=== PATIENT | female | born 1945 | race Caucasian/White ===

== ENCOUNTER 2017-09-30 17:42 | Inpatient (IN) | payer MEDICARE, OTHER ==
[2017-09-30 17:47] VITALS: BP 186/91; PULSE 108; RESP 20; O2SAT 99
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
[2017-09-30 18:31] LABS: AUTOMATED NEUTROPHIL # 3.9 TH/MM3 (1.8-7.7); BASOPHIL % 0.4 % (0.0-2.0); EOSINOPHIL # 0.1 TH/MM3 (0-0.4); EOSINOPHIL % 1.8 % (0.0-4.0); HEMATOCRIT 37.2 % (35.0-46.0); HEMOGLOBIN 13.1 GM/DL (11.6-15.3); LYMPH % 35.3 % (9.0-44.0); LYMPHOCYTE # 2.6 TH/MM3 (1.0-4.8); MEAN CELL VOLUME 86.8 FL (80.0-100.0); MEAN CORPUSCULAR HEMOGLOBIN 30.6 PG (27.0-34.0); MEAN CORPUSCULAR HGB CONC 35.2 % (32.0-36.0); MEAN PLATELET VOLUME 6.8 FL (7.0-11.0); MONO % 9.7 % (0.0-8.0); MONOCYTE # 0.7 TH/MM3 (0-0.9); NEUT % 52.8 % (16.0-70.0); PLATELET COUNT 281 TH/MM3 (150-450); RED BLOOD COUNT 4.29 MIL/MM3 (4.00-5.30); RED CELL DISTRIBUTION WIDTH 13.1 % (11.6-17.2); WHITE BLOOD COUNT 7.4 TH/MM3 (4.0-11.0)
[2017-09-30] MEDS ORDERED: LORA-474 PO (18:46)
[2017-09-30] MEDS ORDERED: MILKSUS PO (18:46)
[2017-09-30] MEDS ORDERED: BENZ1LOZ5 PO (18:46)
[2017-09-30] MEDS ORDERED: ALUMSUS3 PO (18:46)
[2017-09-30] MEDS ORDERED: HYDR-3366 PO (18:46)
[2017-09-30 18:49] LABS: BICARBONATE 29.9 MEQ/L (21.0-32.0); CALCIUM 9.2 MG/DL (8.5-10.1); CREATININE 0.57 MG/DL (0.50-1.00)
--- NOTE | 2017-09-30 19:41 | PD ---
Physical Exam Narrative General: The patient is well-developed well-nourished female in no acute distress, sitting in a wheelchair/motorized chair in her ER room. Head and Neck exam: Head is normocephalic atraumatic. Eyes: EOMI, pupils are equal round and reactive to light. Nose: Midline septum with pink mucous membranes Mouth: Dentition unremarkable. Moist mucus membranes. Posterior oropharynx is not erythematous. No tonsillar hypertrophy. Uvula midline. Airway patent. Neck: No palpable lymphadenopathy. No nuchal rigidity. No thyromegaly. Cardiovascular: Regular rate and rhythm without murmurs, gallops, or rubs. Lungs: Clear to auscultation bilaterally. No wheezes, rhonchi, or rales. Abdomen: Soft, without tenderness to palpation in all 4 quadrants of the abdomen. No guarding, rebound, or rigidity. Normal bowel sounds are audible. No tenderness on palpation of McBurney's point. Extremities: No clubbing or cyanosis, trace pedal edema bilateral lower extremities. Neurologic Exam: Grossly nonfocal. Data Data Last Documented VS Vital Signs Date Time Temp Pulse Resp B/P (MAP) Pulse Ox O2 Delivery O2 Flow Rate FiO2 09/30/17 17:47 108 20 186/91 (122) 99 Orders Orders Complete Blood Count With Diff (09/30/17 18:07) Basic Metabolic Panel (Bmp) (09/30/17 18:07) Urinalysis - C+S If Indicated (09/30/17 18:07) Electrocardiogram (09/30/17 ) Ct Brain W/O Iv Contrast(Rout) (09/30/17 ) Electrocardiogram (09/30/17 ) Psych Screen (09/30/17 20:08) Labs Laboratory Tests Test 09/30/17 18:20 White Blood Count 7.4 TH/MM3 Red Blood Count 4.29 MIL/MM3 Hemoglobin 13.1 GM/DL Hematocrit 37.2 % Mean Corpuscular Volume 86.8 FL Mean Corpuscular Hemoglobin 30.6 PG Mean Corpuscular Hemoglobin Concent 35.2 % Red Cell Distribution Width 13.1 % Platelet Count 281 TH/MM3 Mean Platelet Volume 6.8 FL Neutrophils (%) (Auto) 52.8 % Lymphocytes (%) (Auto) 35.3 % Monocytes (%) (Auto) 9.7 % Eosinophils (%) (Auto) 1.8 % Basophils (%) (Auto) 0.4 % Neutrophils # (Auto) 3.9 TH/MM3 Lymphocytes # (Auto) 2.6 TH/MM3 Monocytes # (Auto) 0.7 TH/MM3 Eosinophils # (Auto) 0.1 TH/MM3 Basophils # (Auto) 0.0 TH/MM3 CBC Comment DIFF FINAL Differential Comment Blood Urea Nitrogen 13 MG/DL Creatinine 0.57 MG/DL Random Glucose 143 MG/DL Calcium Level 9.2 MG/DL Sodium Level 138 MEQ/L Potassium Level 4.2 MEQ/L Chloride Level 104 MEQ/L Carbon Dioxide Level 29.9 MEQ/L Anion Gap 4 MEQ/L Estimat Glomerular Filtration Rate 105 ML/MIN MDM Medical Record Reviewed: Yes Supervised Visit with ETHAN: No Narrative Course During the course of the patients emergency department visit, the patients history, examination, and differential diagnosis were reviewed with the patient. The patient was placed on a hydraulic auto jack mechanic with oximetry and frequent blood pressure monitoring. The patient had IV access obtained and blood work sent for analysis. The patient's case was checked out to me by Dr. Boss. Please see her complete history and physical. The patient's case was checked out to me at the conclusion of her shift. The patient is currently experiencing altered mentation with paranoid delusions and was placed under a Greenwood act at her local long-term. The patients laboratory studies were reviewed and remarkable for a CBC that is remarkable for a white count of 7.4, hemoglobin 13.1, platelets 281 with 9.7 monocytes, BE sick and blood profiles remarkable for an anion gap of 4, glucose 143. A CT scan of the brain was ordered, however the patient refuses to get out of her wheelchair to have the examination done. She denies any head injury. The patient is awake and alert and oriented to person, place, time, and situation, and seems to understand the reasoning behind wanted to get the CAT scan, however she continues to refuse. The CT scan was canceled at this point. The patient has been medically cleared for evaluation by the psychiatric screener under a Greenwood act for paranoid delusions, acute psychosis. Diagnosis Primary Impression: Paranoid delusion Allegra Campbell MD Sep 30, 2017 19:41
[2017-10-01] MEDS ORDERED: ACETAMINOPHEN 325 MG TAB PO PRN
[2017-10-01] MEDS ORDERED: MAGNESIUM HYDROXIDE SUSP 30 ML CUP PO PRN
[2017-10-01] MEDS ORDERED: NICOTINE 21 MG/24 HR PATCH T-DERMAL PRN
[2017-10-01] MEDS ORDERED: ALUMINUM/MAGNESIUM/SIMETH 30 ML CUP PO PRN
[2017-10-01] MEDS ORDERED: ACETAMINOPHEN/HYDROcodone 325 MG/10 MG TAB PO ONE
[2017-10-01 01:30] VITALS: BP 184/82; PULSE 87; RESP 16; O2SAT 99
[2017-10-01 05:38] VITALS: BP 155/70; PULSE 80; RESP 16; O2SAT 99
[2017-10-01 08:19] LABS: ALBUMIN 3.1 GM/DL (3.4-5.0); AST (GOT) 11 U/L (15-37); BICARBONATE 28.7 MEQ/L (21.0-32.0); BLOOD UREA NITROGEN 10 MG/DL (7-18); CALCIUM 8.8 MG/DL (8.5-10.1); CHLORIDE 105 MEQ/L (98-107); CHOLESTEROL 141 MG/DL (120-200); CREATININE 0.45 MG/DL (0.50-1.00); GLOMERULAR FILTRATION RATE 138 ML/MIN (>89); GLUCOSE,RANDOM 92 MG/DL (74-106); SODIUM (NA) 141 MEQ/L (136-145)
[2017-10-01 08:21] LABS: ALT (GPT) 14 U/L (10-53); TRIGLYCERIDES 48 MG/DL (42-150)
[2017-10-01 08:30] LABS: ALKALINE PHOSPHATASE 79 U/L (45-117); LDL CHOLESTEROL 57 MG/DL (0-99); TOTAL BILIRUBIN ADULT 0.3 MG/DL (0.2-1.0); TOTAL PROTEIN 6.4 GM/DL (6.4-8.2)
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
[2017-10-01] MEDS ORDERED: LORazepam 1 MG TAB PO PRN (10:15)
[2017-10-01] MEDS ORDERED: ACETAMINOPHEN/HYDROcodone 325 MG/10 MG TAB PO SCH (10:15)
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
[2017-10-01] MEDS: ACETAMINOPHEN/HYDROcodone 325 MG/10 MG TAB PO PRN ×2 (14:30→20:51)
[2017-10-01 16:14] LABS: HEMOGLOBIN A1C 5.7 % (4.3-6.0)
[2017-10-01] MEDS ORDERED: ACETAMINOPHEN/HYDROcodone 325 MG/10 MG TAB PO PRN (16:15)
--- NOTE | 2017-10-01 17:37 | PD.WCN.NOT ---
Wound Consult Description: Consult for left lower extremity per Dr Velásquez Communicated with: Patient RN Recommendation: Vocabril groundskeeper when patient allows us to remove the current dressing in place. Additional Information: Patient seen outside room 400 for attempt to visualize wound on left lower extremity. Patient refuses dressing removal stating that it was changed last night and is supposed to stay in place for 5 days. Patient states that Xeroform was placed over the small healing wound and a foam with AG was placed over the Xeroform and one dante was used over the dressing to wrap. Gaby Flores [facility]ITAL[facility] Oct 01, 2017 17:37
[2017-10-01 18:00] VITALS: BP 127/70; PULSE 81; RESP 16; TEMP 97.4; O2SAT 99
--- NOTE | 2017-10-01 21:21 | RADRPT ---
EXAM DATE/TIME: 10/01/2017 20:31 [place] COMPARISON: No previous studies available for comparison. INDICATIONS : Altered mental status; weakness,neuropathy,weakness. RADIATION DOSE: 46.78 CTDIvol (mGy) MEDICAL HISTORY : Hypertension. SURGICAL HISTORY : None. ENCOUNTER: Initial ACUITY: 1 day PAIN SCALE: 0/10 LOCATION: cranial TECHNIQUE: Multiple contiguous axial images were obtained of the head. Using automated exposure control and adj ustment of the mA and/or kV according to patient size, radiation dose was kept as low as reasonably a chievable to obtain optimal diagnostic quality images. DICOM format image data is available electro nically for review and comparison. FINDINGS: CEREBRUM: The ventricles are normal for age. No evidence of midline shift, mass lesion, hemorrhage or acute in farction. No extra-axial fluid collections are seen. POSTERIOR FOSSA: The cerebellum and brainstem are intact. The 4th ventricle is midline. The cerebellopontine angle i s unremarkable. EXTRACRANIAL: The visualized portion of the orbits is intact. SKULL: The calvaria is intact. No evidence of skull fracture. CONCLUSION: Normal examination for a patient of this age. Florentino Harris MD on October 01, 2017 at 21:19 Board Certified Radiologist. This report was verified electronically.
[2017-10-02] MEDS: ACETAMINOPHEN/HYDROcodone 325 MG/10 MG TAB PO PRN ×4 (03:06→21:22)
[2017-10-02 05:55] VITALS: BP 123/56; PULSE 79; RESP 17; TEMP 97.6; O2SAT 99
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
[2017-10-02 19:12] VITALS: BP 136/64; PULSE 83; RESP 20; TEMP 97.2; O2SAT 97
[2017-10-02 20:47] VITALS: O2SAT 97
[2017-10-02] MEDS: HEPARIN SODIUM - SQ 10,000 UNITS/ML VIAL SQ SCH (21:00)
[2017-10-03] MEDS: ACETAMINOPHEN/HYDROcodone 325 MG/10 MG TAB PO PRN ×4 (03:40→22:12)
[2017-10-03 06:14] VITALS: BP 134/63; PULSE 74; RESP 16; TEMP 95.2; O2SAT 97
--- NOTE | 2017-10-03 08:31 | HHI.PR ---
Subjective Remarks Follow up on psychosis, reactive airway disease, chronic pain and neuropathy. Patient seen and examined with nurse at bedside. This morning she and reports that her oxygen has been discontinued. Patient states that this morning after being off of oxygen she is feeling weak, she reports shortness of breath, continues to be unwilling to try breathing treatments, room air oxygen saturation 97%. Patient is upset because she believes that oxygen saturation is not an accurate measure of her oxygen levels. She is also requesting special creams and ointments which she states she uses at [facility] she is requesting triple antibiotic ointment which she would like to put on her feet as she states this helps with redness and prevent open wounds. She states that she is covered in blankets because if her skin is exposed to air it will open up and bleed. She is requesting triple antibiotic ointment to put in perineal area due to rash. She does not allow me to examine her feet or skin. Later with psychiatrist and nurse at bedside she does allow us to remove her shoes. Overgrown toenails with skin moisture present. I am not able to see any redness, or sores. Objective Vitals Vital Signs Date Time Temp Pulse Resp B/P (MAP) Pulse Ox O2 Delivery O2 Flow Rate FiO2 10/03/17 06:14 95.2 74 16 134/63 (86) 97 10/03/17 06:00 97 10/03/17 01:00 97 10/02/17 23:21 97 Room Air 10/02/17 20:55 97 Room Air 10/02/17 20:47 97 10/02/17 19:12 97.2 83 20 136/64 (88) 97 10/02/17 17:31 98 Room Air 10/02/17 16:42 97 Room Air 10/02/17 16:17 98 Room Air I/O 10/02/17 10/02/17 10/02/17 10/03/17 10/03/17 10/03/17 07:00 15:00 23:00 07:00 15:00 23:00 Intake Total 480 ml 360 ml 1080 ml 240 ml Balance 480 ml 360 ml 1080 ml 240 ml Intake Oral 480 ml 360 ml 1080 ml 240 ml # Voids 1 5 Result Diagram: 09/30/17 1820 10/01/17 0655 Imaging Last Impressions Head CT 10/01/17 0000 Signed Impressions: Service Date/Time: Sunday, October 01, 2017 20:31 - CONCLUSION: Normal examination for a patient of this age. Florentino Harris MD Objective Remarks GENERAL: Well-nourished, well-developed elderly female patient in NAD. SKIN: Warm and moist. Right leg dressing dry and intact. Skin assessment limited. HEAD: Normocephalic. Atraumatic. EYES: Pupils equal and round. No scleral icterus. No injection or drainage. ENT: No nasal bleeding or discharge. Mucous membranes pink and moist. NECK: Supple. Trachea midline. CARDIOVASCULAR: Regular rate and rhythm. S1, S2 noted. No murmur appreciated. RESPIRATORY: No accessory muscle use. Clear to auscultation. Breath sounds equal bilaterally. GASTROINTESTINAL: Abdomen soft, non-tender, nondistended. Normoactive bowel sounds x4. MUSCULOSKELETAL: No obvious deformities. Bilateral feet with overgrown toenails dark and yellow discoloration. NEUROLOGICAL: Awake and alert. No obvious cranial nerve deficits. Motor grossly within normal limits. Normal speech. 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 Patient who resides in prison was [place] acted secondary to questionable altered mental status, and delusions. Unspecified psychosis - Treatment per psychiatry. - Head CT scan completed on 10/01 reviewed, normal exam for patient's age. - TSH within normal range Reactive airway disease - Patient offered nebulizer treatments, continues to refuse. - Nasal cannula discontinued, oxygen saturation stable. -Request for oxygen likely related to psychiatric issues. Neuropathy/chronic pain - Continue [place] 10 mg every 6 hours as needed for pain -Pending neurology evaluation Right leg wound - Wound care consulted and following. Perineal rash -Patient did not allow for exam -Will allow female nurse to view rash later tonight during bed bath. Overgrown toenails - Podiatry consulted, appreciate recommendations -Nurse to check on consult DVT prophylaxis - start Subcutaneous heparin (patient refusing) Discussed with nurse and Dr. Fonseca. Eugene Camejo Oct 03, 2017 08:31
--- NOTE | 2017-10-03 08:35 | HHI.PYPN ---
Subjective Remarks Patient seen for follow-up, chart reviewed. Discussion she staff reported patient continues to refuse cooperation with physical therapy, wound care and noted to have decreased nutritional intake and continued to be perseverative on having her oxygen despite having good saturations on room air. Patient was found lying in hospital bed but a be continued delusions of the air and environmental factors affecting her physical state stating that her skin would be burning and bleeding expose to the air. She continues to endorse that the chemicals in air or affecting her skin causing her to have the pain. Patient was able to expose her feet to the hospitalist and believes that the overgrowth of her nailbed is a growth apart from her nails. Despite psychoeducation on her medical conditions and necessity for treatment patient continues with these persistent delusions. Review of Systems Except as stated in HPI: all other systems reviewed are Neg Mental Status Examination Appearance: Disheveled, Other (covered in blankets) Consciousness: Alert Orientation: x4 Motor Activity: Abnormal gait Speech: Unremarkable Language: Adequate Fund of Knowledge: Inadequate Attention and Concentration: Adequate Memory: Unremarkable Mood: Anxious, Irritable Affect: Irritable, Anxious Thought Process & Associations: Loose associations, Tangential Thought Content: Bizarre thinking, Preoccupations, Delusional Hallucination Type: None Delusion Type: Paranoid, Somatic Suicidal Ideation: No Suicidal Plan: No Suicidal Intention: No Homicidal Ideation: No Homicidal Plan: No Homicidal Intention: No Insight: Poor Judgment: Poor Results Vitals/IOs Vital Signs Date Time Temp Pulse Resp B/P (MAP) Pulse Ox O2 Delivery O2 Flow Rate FiO2 10/03/17 06:14 95.2 74 16 134/63 (86) 97 10/02/17 23:21 Room Air Intake and Output 10/03/17 10/03/17 10/04/17 08:00 16:00 00:00 Intake Total 240 ml Balance 240 ml Assessment & Plan Problem List: (1) Unspecified psychosis ICD Codes: F29 - Unspecified psychosis not due to a substance or known physiological condition Assessment & Plan The patient at this time continues with his persistent delusions of the ER affecting her well-being and causing burning or bleeding from her skin due to "chemicals in the air". Patient continues refusing psychotropic medications. We'll continue to find healthcare surrogate for patient as patient continues to have these persistent delusions adversely affecting her care and she is refusing cooperation at this time. Podiatry consult pending. Neurology consult pending. Continue recommendations as per primary medical team. Discharge planning in progress Justification for Cont. Inpt. At risk for decompensation at lower level of care Discharge Planning To be determined Rome Fonseca MD Oct 03, 2017 08:35
[2017-10-03] MEDS: HEPARIN SODIUM - SQ 10,000 UNITS/ML VIAL SQ SCH ×2 (09:48→21:00)
[2017-10-03 18:00] VITALS: BP 132/63; PULSE 81; RESP 16; TEMP 94.4; O2SAT 98
[2017-10-04] MEDS: ACETAMINOPHEN/HYDROcodone 325 MG/10 MG TAB PO PRN ×5 (03:56→23:01)
[2017-10-04 06:01] VITALS: BP 114/59; PULSE 72; RESP 17; TEMP 97.5; O2SAT 97
[2017-10-04] MEDS: HEPARIN SODIUM - SQ 10,000 UNITS/ML VIAL SQ SCH ×2 (07:26→20:49)
--- NOTE | 2017-10-04 08:37 | HHI.PR ---
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 she is been greenwood act due to Psychosis followed by Psychiatry, Objective Vital Signs Date Time Temp Pulse Resp B/P (MAP) Pulse Ox O2 Delivery O2 Flow Rate FiO2 10/04/17 06:01 97.5 72 17 114/59 (77) 97 10/03/17 23:08 18 10/03/17 20:00 96 Room Air 21 10/03/17 18:00 94.4 81 16 132/63 (86) 98 10/03/17 08:30 98 Room Air I/O 10/03/17 10/03/17 10/03/17 10/04/17 10/04/17 10/04/17 07:00 15:00 23:00 07:00 15:00 23:00 Intake Total 240 ml 960 ml 840 ml 720 ml Balance 240 ml 960 ml 840 ml 720 ml Intake Oral 240 ml 960 ml 840 ml 720 ml # Voids 5 2 2 Result Diagram: 09/30/17 1820 10/01/17 0655 Imaging Last Impressions Head CT 10/01/17 0000 Signed Impressions: Service Date/Time: Sunday, October 01, 2017 20:31 - CONCLUSION: Normal examination for a patient of this age. Florentino Harris MD Procedures None Other Results Laboratory Tests Test 09/30/17 18:20 10/01/17 06:55 10/01/17 11:40 White Blood Count 7.4 TH/MM3 Red Blood Count 4.29 MIL/MM3 Hemoglobin 13.1 GM/DL Hematocrit 37.2 % Mean Corpuscular Volume 86.8 FL Mean Corpuscular Hemoglobin 30.6 PG Mean Corpuscular Hemoglobin Concent 35.2 % Red Cell Distribution Width 13.1 % Platelet Count 281 TH/MM3 Mean Platelet Volume 6.8 FL Neutrophils (%) (Auto) 52.8 % Lymphocytes (%) (Auto) 35.3 % Monocytes (%) (Auto) 9.7 % Eosinophils (%) (Auto) 1.8 % Basophils (%) (Auto) 0.4 % Neutrophils # (Auto) 3.9 TH/MM3 Lymphocytes # (Auto) 2.6 TH/MM3 Monocytes # (Auto) 0.7 TH/MM3 Eosinophils # (Auto) 0.1 TH/MM3 Basophils # (Auto) 0.0 TH/MM3 CBC Comment DIFF FINAL Differential Comment Blood Urea Nitrogen 10 MG/DL Creatinine 0.45 MG/DL Random Glucose 92 MG/DL Total Protein 6.4 GM/DL Albumin 3.1 GM/DL Calcium Level 8.8 MG/DL Alkaline Phosphatase 79 U/L Aspartate Amino Transf (AST/SGOT) 11 U/L Alanine Aminotransferase (ALT/SGPT) 14 U/L Total Bilirubin 0.3 MG/DL Sodium Level 141 MEQ/L Potassium Level 3.9 MEQ/L Chloride Level 105 MEQ/L Carbon Dioxide Level 28.7 MEQ/L Anion Gap 7 MEQ/L Estimat Glomerular Filtration Rate 138 ML/MIN Hemoglobin A1c 5.7 % Triglycerides Level 48 MG/DL Cholesterol Level 141 MG/DL LDL Cholesterol 57 MG/DL HDL Cholesterol 74.0 MG/DL Cholesterol/HDL Ratio 1.90 RATIO Thyroid Stimulating Hormone 3rd Gen 0.772 uIU/ML Free Thyroxine 1.28 NG/DL Total Triiodothyronine 89 NG/DL Objective Remarks GENERAL: Obese patient in no acute distress. HEAD: Normocephalic. Atraumatic. EYES: Pupils equal and round. NECK: Supple. No JVD CARDIOVASCULAR: Regular rate and rhythm. S1, S2 noted. No murmur appreciated. RESPIRATORY: No accessory muscle use. 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 Patient who resides in [facility] was [place] acted secondary to questionable altered mental status, and delusions. Unspecified psychosis - Treatment per psychiatry. - Head CT scan completed on 10/01 reviewed, normal exam for patient's age. - TSH within normal range Reactive airway disease - Patient offered nebulizer treatments, continues to refuse. - Nasal cannula discontinued, oxygen saturation stable. -Request for oxygen likely related to psychiatric issues. Neuropathy/chronic pain - Continue [place] 10 mg every 6 hours as needed for pain -Pending neurology evaluation Right leg wound - Wound care consulted and following. Perineal rash -Patient did not allow for exam -Will allow female nurse to view rash later tonight during bed bath. Overgrown toenails - Podiatry consulted, appreciate recommendations -Nurse to check on consult DVT prophylaxis - start Subcutaneous heparin (patient refusing) Discussed with Nurse Miss Crawford Patient did not permit major evaluation or physical Exam Discharge Planning as per attending physician Brodie Spencer MD Oct 04, 2017 08:37
--- NOTE | 2017-10-04 09:09 | HHI.PYPN ---
Subjective Remarks Patient is here for follow, chart reviewed. Discussion nursing staff reported the patient has had limited cooperation with physical therapy, refusing to ambulate to shower or use toilet and only wanted to be transferred to wheelchair. Patient was found lying in hospital bed, cooperative. Patient continued to be very perseverative and delusional about having her skin " exposed to the air" due to the chemicals in the air. She continues to report having burning or painful sensations on her skin when exposed to the air. Patient also refuses to cooperate with physical therapy as she does not want to remove the blankets due to the same. Patient was encouraged to work with physical therapy as well as to allow assistance to go to the bathroom shower and maintain adequate personal hygiene. Patient noted to become irritable throughout interview and refused to continue. Review of Systems Except as stated in HPI: all other systems reviewed are Neg Mental Status Examination Appearance: Disheveled, Other (covered in blankets) Consciousness: Alert Orientation: x4 Motor Activity: Abnormal gait Speech: Unremarkable Language: Adequate Fund of Knowledge: Inadequate Attention and Concentration: Adequate Memory: Unremarkable Mood: Anxious, Irritable Affect: Irritable, Anxious Thought Process & Associations: Loose associations, Tangential Thought Content: Bizarre thinking, Preoccupations, Delusional Hallucination Type: None Delusion Type: Paranoid, Somatic Suicidal Ideation: No Suicidal Plan: No Suicidal Intention: No Homicidal Ideation: No Homicidal Plan: No Homicidal Intention: No Insight: Poor Judgment: Poor Results Vitals/IOs Vital Signs Date Time Temp Pulse Resp B/P (MAP) Pulse Ox O2 Delivery O2 Flow Rate FiO2 10/04/17 06:01 97.5 72 17 114/59 (77) 97 10/03/17 20:00 Room Air 21 Intake and Output 10/04/17 10/04/17 10/05/17 08:00 16:00 00:00 Intake Total 720 ml Balance 720 ml Assessment & Plan Problem List: (1) Unspecified psychosis ICD Codes: F29 - Unspecified psychosis not due to a substance or known physiological condition Assessment & Plan Patient at this time continues to be very delusional and somatic refusing interventions and care from staff. Due to these delusions patient has been resistant to work with physical therapy, allowing assistance to shower which she has not done since admission. Patient no longer on oxygen and saturating well on room air. Patient continues to refuse psychotropic medications to address her delusions. It is possible that these delusions may be fixed but are clear if they will be responsive to antipsychotic treatment as patient is refusing at this time. Podiatry consult pending, neurology consult pending. Continue recommendations for per medical team. Continue to encourage patient to participate in care. Discharge planning in progress Justification for Cont. Inpt. At risk for further decompensation if at lower level of care Discharge Planning To be determined Rome Fonseca MD Oct 04, 2017 09:09
[2017-10-04] MEDS ORDERED: ZINC OXIDE 20% OINT 30 GM TUBE TOPICAL PRN (15:15)
[2017-10-04 18:00] VITALS: BP 132/63; PULSE 75; RESP 17; O2SAT 97
[2017-10-05] MEDS: ACETAMINOPHEN/HYDROcodone 325 MG/10 MG TAB PO PRN ×4 (03:59→22:43)
[2017-10-05 06:00] VITALS: BP 120/60; PULSE 68; RESP 20; TEMP 98.1; O2SAT 96
[2017-10-05] MEDS: HEPARIN SODIUM - SQ 10,000 UNITS/ML VIAL SQ SCH ×3 (07:40→21:20)
--- NOTE | 2017-10-05 08:36 | HHI.PR ---
Subjective Remarks Patient seen and examined this morning. Afebrile vital signs stable. She is completely covered in multiple layers of clothes and blankets. Would not allow me to examine her body. She is demanding that we provide her with oxygen even though she is satting well and having no issues at this time. She is currently Greenwood acted and her psychosis is being managed by psychiatry. She is reporting multiple complaints of rashes, ingrown toe nails, and hallucinations. Of note she will not allow me to examine her. At this time she is currently medically stable. Objective Vitals Vital Signs Date Time Temp Pulse Resp B/P (MAP) Pulse Ox O2 Delivery O2 Flow Rate FiO2 10/05/17 06:00 98.1 68 20 120/60 (80) 96 10/04/17 18:00 75 17 132/63 (86) 97 I/O 10/04/17 10/04/17 10/04/17 10/05/17 10/05/17 10/05/17 07:00 15:00 23:00 07:00 15:00 23:00 Intake Total 720 ml 960 ml 840 ml 240 ml Balance 720 ml 960 ml 840 ml 240 ml Intake Oral 720 ml 960 ml 840 ml 240 ml # Voids 1 1 Result Diagram: 10/01/17 0655 Imaging Last Impressions Head CT 10/01/17 0000 Signed Impressions: Service Date/Time: Sunday, October 01, 2017 20:31 - CONCLUSION: Normal examination for a patient of this age. Florentino Harris MD Objective Remarks Of note patient would not allow me to remove the layers covering her to examine her skin and body. GENERAL: Well-nourished, well-developed patient. No acute distress. SKIN: Warm and dry. No rash. EYES: No scleral icterus. No injection or drainage. PERRLA. EOMI. HENT: Normocephalic. Atraumatic. MMM. NECK: No visible JVD or lymphadenopathy. CARDIOVASCULAR: Regular rate and rhythm RESPIRATORY: Clear to auscultation bilaterally GASTROINTESTINAL: Abdomen nondistended. MUSCULOSKELETAL: Strength grossly WNL. BACK: Without obvious deformity. NEURO/PSYCH: Afocal. Awake, alert, and oriented x3. Medications and IVs Current Medications Medications (Trade) Dose Ordered Sig/Cesia Route Start Time Stop Time Status Last Admin (Tylenol) 650 mg Q4H PRN PO 10/01/17 00:00 (Milk Of Magnesia Liq) 30 ml DAILY PRN PO 10/01/17 00:00 (Mag-Al Plus Susp Liq) 30 ml Q6H PRN PO 10/01/17 00:00 (Habitrol 21 Mg Patch.24 Hr) 1 patch DAILY PRN T-DERMAL 10/01/17 00:00 (Ativan) 1 mg Q6H PRN PO 10/01/17 10:15 ([place] 10-325 Mg) 1 tab Q6H PRN PO 10/01/17 14:10 10/05/17 03:59 (Heparin Inj) 5,000 units Q12HR SQ 10/02/17 21:00 (Zinc Oxide 20% Oint) 1 applic UNSCH PRN TOPICAL 10/04/17 15:15 A/P Problem List: (1) Paranoid delusion ICD Code: F22 - Delusional disorders Status: Acute Assessment and Plan 71-year-old female with past medical history significant for 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 Patient who resides in residential was [place] acted secondary to questionable altered mental status, and delusions. Unspecified psychosis - Treatment per psychiatry. - Head CT scan completed on 10/01 reviewed, normal exam for patient's age. - TSH within normal range Reactive airway disease - Patient offered nebulizer treatments, continues to refuse. - Nasal cannula discontinued, oxygen saturation stable. -Request for oxygen likely related to psychiatric issues. Neuropathy/chronic pain - Continue [place] 10 mg every 6 hours as needed for pain -Pending neurology evaluation Right leg wound - Wound care consulted and following. Perineal rash -Patient did not allow for exam -Will allow female nurse to view rash later tonight during bed bath. Overgrown toenails - Podiatry consulted, appreciate recommendations -Nurse to check on consult DVT prophylaxis - start Subcutaneous heparin (patient refusing) Discharge Planning Currently [place] acted discharge planning per psychiatry Jaren Cerrato MD, R3 Oct 05, 2017 08:36
--- NOTE | 2017-10-05 14:11 | HHI.PYPN ---
Subjective Remarks Patient is here for follow, chart reviewed. Discussion nursing staff reported the patient this morning was perseverative on having oxygen replaced despite the patient having adequate saturation on room air. Patient was found sitting in hospital chair in the hallway noted to be covered up from the neck down to her feet stating that she had difficulty breathing last night because the heater was on on the unit and very difficult for her to breathe. Patient states the physical therapy did come by but she had refused to try to work with them stating that her skin and cannot be exposed to the air because her skin will "break out in bleed". The patient was reminded that this patient has not had any skin lesions or bleeding since her admission patient states that if she is exposed to the long enough that will happen. Patient continues to have perseveration of these somatic delusions and refusing allowing staff to assist her into the shower or into the bathroom to have bowel movement in the toilet. Patient continues to demand having bowel movements with the bedpan and that to be moved from her bed. Patient continues to state that there have been years of documentation and lawsuit against her previous doctors about her conditions improvise name of her courtesy booth cashier Ramon Penaloza ([phone]) who allegedly has all these documents. When asked if treatment team can contact her brother in [place] patient refused. Review of documentation from psychiatric evaluation done on 09/30/17 was requested due to increasing psychosis, delusions and paranoia requested by nursing staff as [facility] was deemed not [facility] and refuses treatment. After evaluation patient was determined to have delusional disorder and OCD which patient had refused treatment and was subsequently put on a Greenwood act and brought to the hospital. Review of Systems Except as stated in HPI: all other systems reviewed are Neg Mental Status Examination Appearance: Disheveled, Other (covered in blankets) Consciousness: Alert Orientation: x4 Motor Activity: Abnormal gait Speech: Unremarkable Language: Adequate Fund of Knowledge: Inadequate Attention and Concentration: Adequate Memory: Unremarkable Mood: Anxious, Irritable Affect: Irritable, Anxious Thought Process & Associations: Loose associations, Tangential Thought Content: Bizarre thinking, Preoccupations, Delusional Hallucination Type: None Delusion Type: Paranoid, Somatic Suicidal Ideation: No Suicidal Plan: No Suicidal Intention: No Homicidal Ideation: No Homicidal Plan: No Homicidal Intention: No Insight: Poor Judgment: Poor Results Vitals/IOs Vital Signs Date Time Temp Pulse Resp B/P (MAP) Pulse Ox O2 Delivery O2 Flow Rate FiO2 10/05/17 12:40 96 Room Air 10/05/17 06:00 98.1 68 20 120/60 (80) 10/03/17 20:00 21 Intake and Output 10/05/17 10/05/17 10/06/17 08:00 16:00 00:00 Intake Total 480 ml 960 ml Balance 480 ml 960 ml Assessment & Plan Problem List: (1) Unspecified psychosis ICD Codes: F29 - Unspecified psychosis not due to a substance or known physiological condition Assessment & Plan Patient this time continues with persistent somatic delusions as well as paranoia and continues to refuse cooperation with treatment and evaluations. Patient continues to have poor care of hygiene secondary to her delusions. There are no family or friends to serve as health care surrogates regarding applicants and patient refusing to allow treatment team to contact the patient' s brother in [place] for more collateral information. Patient continues to report having neuropathy which neurology consult still pending as well as podiatry consult pending. Continue to encourage patient to participate in care and to allow assistance in personal hygiene. Discharge planning in progress Justification for Cont. Inpt. At risk for further decompensation at lower level of care Rome Fonseca MD Oct 05, 2017 14:11
[2017-10-05 18:36] VITALS: BP 141/70; PULSE 78; RESP 16; O2SAT 98
[2017-10-06] MEDS: ACETAMINOPHEN/HYDROcodone 325 MG/10 MG TAB PO PRN ×4 (05:07→23:09)
[2017-10-06 05:34] VITALS: BP 120/57; PULSE 77; RESP 16; O2SAT 97
[2017-10-06] MEDS: HEPARIN SODIUM - SQ 10,000 UNITS/ML VIAL SQ SCH ×2 (09:00→21:00)
--- NOTE | 2017-10-06 09:50 | HHI.PR ---
Subjective Remarks No distress. Patient is out of bed in a wheelchair, having a conversation on the telephone when seen. No need for oxygen. Objective Vital Signs Date Time Temp Pulse Resp B/P (MAP) Pulse Ox O2 Delivery O2 Flow Rate FiO2 10/06/17 05:34 77 16 120/57 (78) 97 10/05/17 20:00 98 Room Air 10/05/17 18:36 78 16 141/70 (93) 98 10/05/17 12:40 96 Room Air I/O 10/05/17 10/05/17 10/05/17 10/06/17 10/06/17 10/06/17 07:00 15:00 23:00 07:00 15:00 23:00 Intake Total 240 ml 1200 ml 480 ml 120 ml 360 ml Balance 240 ml 1200 ml 480 ml 120 ml 360 ml Intake Oral 240 ml 1200 ml 480 ml 120 ml 360 ml # Voids 1 2 2 Procedures None Objective Remarks GENERAL: NAD, sitting upright, mobile with wheelchair. SKIN: Warm and dry. HEAD: Normocephalic. EYES: No scleral icterus. No injection or drainage. NECK: trachea midline. No JVD or lymphadenopathy. CARDIOVASCULAR: Regular rate and rhythm RESPIRATORY: No respiratory distress. No wheezing. No accessory muscle use. GASTROINTESTINAL: nondistended. MUSCULOSKELETAL: No cyanosis, or edema. BACK: Nontender without obvious deformity. No CVA tenderness. A/P Problem List: (1) Paranoid delusion ICD Code: F22 - Delusional disorders Status: Acute (2) Unspecified psychosis ICD Code: F29 - Unspecified psychosis not due to a substance or known physiological condition Assessment and Plan 71-year-old female admitted with paranoid delusions. Complaint of respiratory distress, without correlation of hypoxia or signs of respiratory distress on physical exam. Unspecified psychosis Continue Treatment per psychiatry. Reactive airway disease Resolved Continue nebulized treatments if needed No need for oxygen Chronic Neuropathic Pain Continue [place] 10 mg every 6 hours as needed for pain Right leg wound No worsening Wound Care Following Perineal rash Patient declines exams Overgrown toenails Podiatry following Patient may decline exam DVT prophylaxis Patient refuses SQ heparin Discharge Planning discharge planning per psychiatry Oliver Small MD Oct 06, 2017 09:50
--- NOTE | 2017-10-06 10:36 | PD.TTN ---
Patient Problems 1. Discharge planning 2. Medication compliance 3. Knowledge deficit 4. Lack of coping skills Progress Toward Goals Provider Present: Dr. Gopi Fonseca Provider Input: 10/06/2017: per Dr. Fonseca, patient is refusing medication and service; will need to take to BA court Nurse(s) Present: RN Nurse(s) Input: 10/06/2017: patient requires redirection and coaching with meals, medication and treatment Psychiatric Counselors Present: PEGGY Edward Psych Therapist Input: 10/06/2017; counselor will contact [facility] to gather additional information regarding BA from their facility. Group Spec/RT/OT/UMANA Present: Marcella Mane, GPS, Chris Peguero, OT Group Spec/RT/OT/UMANA Input: 10/06/2017 patient is unable to participate with group activities Maye Alexis [facility] Oct 06, 2017 10:36
--- NOTE | 2017-10-06 10:46 | HHI.PYPN ---
Subjective Remarks Patient seen for follow, chart reviewed. Discussion nursing staff reported the patient continues to refuse all interventions for care or allowing evaluation to be done adequately by staff. Patient was found in a wheelchair today and noted to be somewhat irritable when asked to allow the wound whom she has dressing on to be examined today stating that she needed to be in the hallway to be able to breathe. Patient continues with very bizarre somatic delusions and what attempts to explain medical necessity for interventions and evaluations patient continues to resist allowing evaluation or interventions. Legal process was reviewed with patient as patient will be taken to mental health court which acknowledged. Review of Systems Except as stated in HPI: all other systems reviewed are Neg Mental Status Examination Appearance: Disheveled, Other (covered in blankets) Consciousness: Alert Orientation: x4 Motor Activity: Abnormal gait Speech: Unremarkable Language: Adequate Fund of Knowledge: Inadequate Attention and Concentration: Adequate Memory: Unremarkable Mood: Anxious, Irritable Affect: Irritable, Anxious Thought Process & Associations: Loose associations, Tangential Thought Content: Bizarre thinking, Preoccupations, Delusional Hallucination Type: None Delusion Type: Paranoid, Somatic Suicidal Ideation: No Suicidal Plan: No Suicidal Intention: No Homicidal Ideation: No Homicidal Plan: No Homicidal Intention: No Insight: Poor Judgment: Poor Results Vitals/IOs Vital Signs Date Time Temp Pulse Resp B/P (MAP) Pulse Ox O2 Delivery O2 Flow Rate FiO2 10/06/17 05:34 77 16 120/57 (78) 97 10/05/17 20:00 Room Air 10/05/17 06:00 98.1 10/03/17 20:00 21 Intake and Output 10/06/17 10/06/17 10/07/17 08:00 16:00 00:00 Intake Total 120 ml 360 ml Balance 120 ml 360 ml Assessment & Plan Problem List: (1) Unspecified psychosis ICD Codes: F29 - Unspecified psychosis not due to a substance or known physiological condition Assessment & Plan Patient at this time continues to endorse somatic and bizarre delusions and continues to refuse interventions or evaluations by staff. Continue to encourage patient to participate in adequate hygiene. Podiatry and neurology consult pending. Patient refusing to provide brother as contact center agent for collateral information. Continue to monitor mood and behavior. Discharge planning progress Justification for Cont. Inpt. At risk for further decompensation if at lower level of care Discharge Planning To be determined Rome Fonseca MD Oct 06, 2017 10:46
--- NOTE | 2017-10-06 16:52 | PD.WCN.NOT ---
Wound Consult Description: Received consult from Doctor Raymundo for wound management of L lower leg Communicated with: PO[facility] medical pysch unit Recommendation: Please continue dressings as follows from rehab facilty : Cleanse wound with wound to L lower extremity with wound cleanser and pat dry. Apply triple antibiotic to wound bed and and cover with Xeroform gauze in a single layer just over open wound. Cover with Optifoam AG and secure with rolled gauze and tape. Change dressing every 7 days or PRN if saturated or dislodged. Additional Information: Patient seen on 4th floor medical behavioral unit. Patient is very anxious about getting dressing changed on LLE. Pat[place] initially refused dressing change , POOL Wolf spoke with patient and encouraged patient to get dressing changed. Patient agreed to dressing change. Patient in room for dressing. Patient is noted with multiple layers of blankets, sweat pants, and towels in place over L Lower extremity. Patient insists that her skin must be covered or her skin will burn.Assisted patient in removal of layers. Removed dressing in place to LLE to reveal small open wound to posterior calf that measures ~1cm x ~1cm x ~<0.1cm peeling discolored skin with healing abrasion is noted to periwound. Cleansed wound and abrasion with wound cleanser and Applied triple antibiotic ointment to open wound and abrasion. Zinc oxide was then applied to peeling dry skin. Applied Xeroform over open wound and abrasion and covered with Optfoam AG non adhesive and secured dressing with 2 rolled gauze and tape. Patient insists that this the dressing that has worked for her from rehab. Does not want anything else applied.Patient reapplied layers after dressing was applied. Angie Jin [facility] Oct 06, 2017 16:52
[2017-10-07] MEDS: ACETAMINOPHEN/HYDROcodone 325 MG/10 MG TAB PO PRN ×4 (05:48→23:53)
[2017-10-07 06:12] VITALS: BP 138/64; PULSE 78; RESP 17; TEMP 97.4; O2SAT 97
[2017-10-07] MEDS: HEPARIN SODIUM - SQ 10,000 UNITS/ML VIAL SQ SCH ×2 (09:00→21:00)
--- NOTE | 2017-10-07 14:55 | PD.HHIRBSE ---
Patient History Record/History Review Reason for Referral: The patient is a 71 year old right-handed woman who was admitted under [place] due to mental status changes and increased paranoia. She presently lives in a fpc, reported that she is , and denies any previous psychiatric history, previous suicidal attempts, denies previous psychiatric hospitalizations and denies the use of drugs and alcohol. She reports that her medical history is significant for reactive airway disease and multiple chemical sensitivity. Again, she was brought to the hospital on the [place] due to increased paranoia and delusional behavior. She has been very paranoid and interfering with her care. The patient is calm, cooperative, very talkative, but redirectable. The patient says that she has been very uncomfortable in the hospital because she needs at least 5 blankets to cover herself "because my skin is very reactive and sensitive and dust can get to my pores." The patient is entirely covered with several blankets, and she uses a t -shirt to cover her neck. She also says that her immune system is down to 0, and she is extremely sensitive to the environment. She reports increased pain, 10 of 10, even though it she cannot elaborate about the situation of her pain. Patient seems to be guarded, internally stimulated, very suspicious. For the most part her thought-processes are disorganized and even tangential, and she is very preoccupied with somatic complaints. She denies suicidal and homicidal ideation, she denies visual and auditory hallucinations. Recent head CT was within normal limits. The patient is fully oriented 3, no attention deficit, fluctuation of consciousness. Given her age and possibility of an underlying major neurocognitive disorder, she is referred for baseline neurobehavioral status examination to assess cognitive, behavioral and emotional aspects of the injury and to provide treatment recommendations. Neuropsych Precautions: To be determined. Past Surgical/Medical History Past Surgery: No Major surgery in last 100 days: No Hx of Neuro Prob: No Hx Seizures: No Hx of Musculoskeletal Pro: No Hx of Cardiovascular Prob: No Hypertension (High Blood Press: Yes Hx of Respiratory Problem: Yes (REACTIVE AIRWAYS DISEASE) Hx Asthma: Yes Hx of GI Problems: No Hx of Problems: Yes (INCONTINENT) ?: Not Lactating: No Less Than 1 Month A: No Hx of Immuno Disor: No Hx Autoimmune Disease: No Hx of Endocrine Problems: No Hx Diabetes: No Hx of Eye Probl: Yes (READING GLASSES) Hx of Hearing or Ear Problems: No Hx Dental Problems: Yes (missing teeth) Hx Psychiatric Problems: No Hx Anxiety: No Hx Depression: No Hx Blood Dyscrasias: No Hx of MDRO: No Hx of MRSA: No Hx of VRE: No Hx of CDIFF: No Hx of Tuberculosis: No Hx Chicken Pox: No If No, Have You Been Exposed W: No Hx of Body/Medical Devices: No Blood Transfusion History Will receive Blood /Blood prod: Yes Hx Blood Transfusions: No Mental Status Assessment Orientation: oriented to Self, oriented to Place, oriented to Time, oriented to Situation Mental Status: WFL: Language/Interactions, Attention, Learning/Memory, Impaired : Thought processing, Problem-Solving Observation The patient is alert and oriented to person, place and time. Her understanding concerning the circumstances surrounding the reason for her hospitalization are attenuated by her delusional disorder. In terms of attention skills, the patient was able to remain on task and remember basic and complex instructions. However, when the examiner attempted to change topics, she would resist and continue perseveratively on her somatic delusional line of thinking. In terms of memory functioning, the patient was able basic information, incidents that have occurred since her admission, and current events. The patient initiated spontaneous conversation. Speech was characterized by adequate prosody, grammar , articulation and volume but her rate of speech was pressured. Basic naming skills were intact. Language repetition skills were intact. The patients comprehensions for basic one- and two-stage commands were intact. Basic verbal abstraction and problem-solving skills were attenuated by her delusional ideation. The patient appears to posses poor insight and awareness into their situation and within the limits of this brief evaluation, impaired judgment. Impression Impairment of complex attention, pressured speech, and altered abstract reasoning skills due to her delusional ideation and somatic obsessions. Adjustment/Coping Assessment Adjustment/Coping: Severe: Pain, Awareness, Insight Observation The patients thought content was free from suicidal or homicidal but was significant for paranoid ideation related to her fpc care and her care since her [facility] admission. The patients thought processes were tangential and perseverative. The patients mood was guarded and anxious, and the affect was intense. LTG Status: Deferred STG Status: Deferred Team Members: Physician, Neuropsychologist Behavior Assessment Agitation: Mild Treatment Engagement: Minimal Observation Behaviorally, the patient demonstrated no signs of agitation, impulsivity or disinhibition during this brief interview. It is noted that she refused evaluation, yet did then enter into a conversation with the examiner concerning her somatic complaints. Of note is that in the examiner's opinion, there was remarkable evidence of a formal thought disorder/psychosis specifically centering on her entrenched somatic delusions and obsessive ruminations concerning her health. LTG - Status: Deferred STG Status: Deferred Team Members: Physician, Neuropsychologist Diagnosis/Discharge Plan Impression This 71 year old woman was admitted under [place] for mental status changes and increasing paranoia concerning her care at a local fpc, somatic delusions and obsessive health ruminations. In general, this patient was not able to be formally tested given her refusal. However, she did allow a conversation with this examiner which allows me to assess her mental status from a neurobehavioral perspective. In general, this patient is alert and oriented, demonstrates adequate basic attention and memory carryover abilities, normal speech and language skills, but impaired complex problem solving, poor insight and awareness and impaired judgment. Recent head CT was unremarkable. Diagnostically, there appears minimal evidence of an underlying major neurocognitive disorder. However, the level of entrenchment and perseveration of her delusional ideation concerning her somatic symptoms and her obsessive ruminations support a diagnosis of somatic delusional disorder with bizarre content. She clearly has a lack of decision making capacity in light of the entrenchment of her delusional disorder. Diagnosis: (1) Somatic type delusional disorder, with bizarre content, multiple episodes currently in acute episode Status: Acute Maximizing acute care outcome It is recommended that the patient continue to be hospitalized to treat the psychiatric component of her medical condition. At this point in the recovery process, the patient does not have cognitive capacity as the patient is unable to understand a situation and its likely consequences, nor is she able to manipulate information rationally. Discharge Planning Anticipated Problems Ongoing areas of concern will include lack of insight and judgment, which is not expected to improve with time and treatment. In my experience, persons with this level of entrenched delusional somatization never significantly improve, and this deficit is considered permanent, and must be managed from a psychiatric perspective. Treatment Plan Defer to the excellent care this patient is receiving from her treating psychiatrist. Discharge Needs To be determined. Thank you Thank you for the opportunity to assist in this patients care. Jaylan Perez, Ph.D., ABPP Board Certified in Clinical Neuropsychology [place] [employer] [place] Licensed Psychologist #[id number] Jaylan Perez PhD Oct 07, 2017 14:55
--- NOTE | 2017-10-07 15:13 | HHI.PYPN ---
Subjective Remarks Patient is here for follow-up, chart reviewed. Discussion nursing staff reported the patient continues to be refusing evaluation and participation with intervention and care. Patient was found sitting in the room covered with clothes and blankets with persistent bizarre and somatic delusions. 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 Newby and provided prescriptions for Lortabs. Patient also denies having been seen by psychiatrist at her senior care. Patient is aware that [place] she will be seeing her soon. Patient continues to allow examination by staff continues to refuse to work with physical therapy. Patient also continues to refuse assistance to shower and is only willing to do sponge baths. Review of Systems Except as stated in HPI: all other systems reviewed are Neg Mental Status Examination Appearance: Disheveled, Other (covered in blankets) Consciousness: Alert Orientation: x4 Motor Activity: Abnormal gait Speech: Unremarkable Language: Adequate Fund of Knowledge: Inadequate Attention and Concentration: Adequate Memory: Unremarkable Mood: Oppositional, Anxious, Irritable Affect: Irritable, Anxious Thought Process & Associations: Loose associations, Tangential Thought Content: Bizarre thinking, Preoccupations, Delusional Hallucination Type: None Delusion Type: Paranoid, Somatic Suicidal Ideation: No Suicidal Plan: No Suicidal Intention: No Homicidal Ideation: No Homicidal Plan: No Homicidal Intention: No Insight: Poor Judgment: Poor Results Vitals/IOs Vital Signs Date Time Temp Pulse Resp B/P (MAP) Pulse Ox O2 Delivery O2 Flow Rate FiO2 10/07/17 06:12 97.4 78 17 138/64 (88) 97 10/06/17 21:10 Room Air 10/03/17 20:00 21 Intake and Output 10/07/17 10/07/17 10/08/17 08:00 16:00 00:00 Intake Total 960 ml 120 ml Balance 960 ml 120 ml Assessment & Plan Problem List: (1) Unspecified psychosis ICD Codes: F29 - Unspecified psychosis not due to a substance or known physiological condition Assessment & Plan Patient continues to endorse bizarre somatic delusions, continues to refuse cooperation with staff for evaluation or interventions. Patient was presented to mental health court on and retainable request PRAVIN as her healthcare surrogate and guardian advocate to begin treatment over objection granted by the court. Patient's delusions continued to interfere with her ability self-care allow others to care for her medical needs to continue to be at risk for further long-term complications due to her delusions.. Continue to encourage patient to participate in care. Continue to monitor mood and behavior. Podiatry consult pending. Neurology consult pending. Neuropsychological consult appreciated. Discharge planning in progress. Justification for Cont. Inpt. At risk for further decompensation if at lower level of care Roem Fonseca MD Oct 07, 2017 15:13
[2017-10-07 17:28] VITALS: BP 123/59; PULSE 83; RESP 18; TEMP 97.2; O2SAT 97
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
--- NOTE | 2017-10-07 22:13 | MB ---
cc: ANISA PADILLA DATE OF CONSULTATION: 10/07/2017 CHIEF COMPLAINT Bilateral elongated painful toenails. HISTORY OF PRESENT ILLNESS: The patient is currently admitted under a psychiatric hold and states that she has a chemical skin reaction that causes her nails to grow in this manner and be painful. PAST MEDICAL HISTORY: Neuropathy. Reactive airway disease. PAST SURGICAL HISTORY None FAMILY HISTORY Noncontributory. SOCIAL HISTORY The patient lives in a prison. No known drug or alcohol abuse. PHYSICAL EXAMINATION: VITAL SIGNS: Temperature is 97.2, pulse 83, respiratory rate 18, blood pressure 123/59, pulse ox 97% O2 on room air. The patient has palpable pulses, BP and PT cap fill time less than 3 seconds. Gross sensation is diminished but intact. The patient has "jesus horn nails." They curve off and twist back onto her skinb. She remarkably does not appear to have any breaks or cuts in the skin, though. The patient does report tenderness otherwise no gross obvious abnormalities of the feet. ASSESSMENT AND PLAN: Onychomycosis deformity. The patient is agreeable to having the nails trimmed but she will not do it before as she feels is an important day that may affect her discharge. She states that if she has any chance of being discharged she would rather have the nails done in the office. If the patient remains in-house on Friday or Friday, I would be glad to treat her. I will need bone cutters obtained from the operating room and I will need assistance from a nurse at that time. I will continue to monitor the patient while in house. Thank you for the consultation. Anisa FISH/YAIMA /7:43 PM /10:00 PM
[2017-10-08 05:40] VITALS: BP 129/60; PULSE 79; RESP 16; TEMP 97.5; O2SAT 96
[2017-10-08] MEDS: ACETAMINOPHEN/HYDROcodone 325 MG/10 MG TAB PO PRN ×4 (05:57→23:05)
[2017-10-08] MEDS: HEPARIN SODIUM - SQ 10,000 UNITS/ML VIAL SQ SCH ×2 (09:00→20:46)
[2017-10-08] MEDS: CYANOCOBALAMIN 1000 MCG/ML VIAL IM SCH (12:00)
--- NOTE | 2017-10-08 14:01 | HHI.PYPN ---
Subjective Remarks Patient seen for follow-up, chart reviewed. Discussion with staff reported the patient refusing to shower or to allow evaluation or participation in treatment and care. Patient was found sitting in day room wheelchair with multiple garments placed on her as well as blankets, able to interact with interview but refusing to cooperate with evaluation. Patient was seen by podiatry consult which recommended treatment and refused stating that she needed to be "100% for court tomorrow". When encouraged to participate in showers patient continues to defer conversation to other topics to avoid engaging in the rationale of patient refusing to this. Patient continues with perseveration of the bizarre somatic delusions. Review of Systems Except as stated in HPI: all other systems reviewed are Neg Mental Status Examination Appearance: Disheveled, Other (covered in blankets) Consciousness: Alert Orientation: x4 Motor Activity: Abnormal gait Speech: Unremarkable Language: Adequate Fund of Knowledge: Inadequate Attention and Concentration: Adequate Memory: Unremarkable Mood: Oppositional, Anxious Affect: Irritable, Anxious Thought Process & Associations: Loose associations, Tangential Thought Content: Bizarre thinking, Preoccupations, Delusional Hallucination Type: None Delusion Type: Paranoid, Somatic Suicidal Ideation: No Suicidal Plan: No Suicidal Intention: No Homicidal Ideation: No Homicidal Plan: No Homicidal Intention: No Insight: Poor Judgment: Poor Results Labs Labs reviewed Test 10/08/17 07:08 Vitamin B12 Level 186 PG/ML Vitals/IOs Vital Signs Date Time Temp Pulse Resp B/P (MAP) Pulse Ox O2 Delivery O2 Flow Rate FiO2 10/08/17 05:40 97.5 79 16 129/60 (83) 96 10/07/17 19:00 Room Air Intake and Output 10/08/17 10/08/17 10/09/17 08:00 16:00 00:00 Intake Total 720 ml Balance 720 ml Assessment & Plan Problem List: (1) Unspecified psychosis ICD Codes: F29 - Unspecified psychosis not due to a substance or known physiological condition Assessment & Plan Patient continues with his bizarre somatic delusions which impeded in the care and evaluation here during admission. Patient continues to have poor insight and judgment into her delusions and continues to refuse any medications. Patient presented to mental health court tomorrow for petition for involuntary hospitalization and treatment over objection if granted. Continue to monitor mood and behavior. Discharge planning in progress Justification for Cont. Inpt. At risk of further decompensation of lower level of care Discharge Planning Return back to her [facility] [place] Fonseca MD Oct 08, 2017 14:01
[2017-10-08 18:18] VITALS: BP 125/52; PULSE 77; RESP 20; TEMP 98.6; O2SAT 97
[2017-10-08] MEDS: EUCERIN CREAM 120 GM JAR TOPICAL PRN (18:30)
[2017-10-09] MEDS: ACETAMINOPHEN/HYDROcodone 325 MG/10 MG TAB PO PRN ×3 (05:27→18:07)
[2017-10-09 05:40] VITALS: BP 123/58; PULSE 84; RESP 18; O2SAT 97
[2017-10-09] MEDS: HEPARIN SODIUM - SQ 10,000 UNITS/ML VIAL SQ SCH ×2 (08:53→21:00)
[2017-10-09] MEDS: CYANOCOBALAMIN 1000 MCG/ML VIAL IM SCH (11:49)
[2017-10-09] MEDS ORDERED: LORazepam 0.5 MG TAB PO PRN (16:15)
--- NOTE | 2017-10-09 17:36 | HHI.PYPN ---
Subjective Remarks Patient seen for follow-up, chart reviewed. Discussion with nursing staff reported that patient continued to refuse care and evaluations. Patient presented to mental health court and was kept under involuntary admission. Patient was later seen which she was demanding to be discharged and had been reminded that the petition for involuntary admission was granted. Patient agreed for podiatry intervention. Start of haloperidol was reviewed with patient which she was resisted to. Review of Systems Except as stated in HPI: all other systems reviewed are Neg Mental Status Examination Appearance: Disheveled, Other (covered in blankets) Consciousness: Alert Orientation: x4 Motor Activity: Abnormal gait Speech: Unremarkable Language: Adequate Fund of Knowledge: Inadequate Attention and Concentration: Adequate Memory: Unremarkable Mood: Oppositional, Anxious Affect: Irritable, Anxious Thought Process & Associations: Loose associations, Tangential Thought Content: Bizarre thinking, Preoccupations, Delusional Hallucination Type: None Delusion Type: Paranoid, Somatic Suicidal Ideation: No Suicidal Plan: No Suicidal Intention: No Homicidal Ideation: No Homicidal Plan: No Homicidal Intention: No Insight: Poor Judgment: Poor Results Vitals/IOs Vital Signs Date Time Temp Pulse Resp B/P (MAP) Pulse Ox O2 Delivery O2 Flow Rate FiO2 10/09/17 05:40 84 18 123/58 (79) 97 10/08/17 18:18 98.6 10/07/17 19:00 Room Air Assessment & Plan Problem List: (1) Unspecified psychosis ICD Codes: F29 - Unspecified psychosis not due to a substance or known physiological condition Assessment & Plan Patient continues with paranoid and somatic delusions. Will start haloperidol 2.5mg PO BID for psychosis. Continue to encourage patient to participate in personal hygiene. Podiatry input appreciated. Discharge planning in progress. Justification for Cont. Inpt. At risk for further decompensation if at lower level of care. Discharge Planning Back to [place] Ruby MD Oct 09, 2017 17:36
[2017-10-09 17:38] VITALS: BP 125/74; PULSE 88; RESP 18; TEMP 97.4; O2SAT 97
[2017-10-09] MEDS ORDERED: diphenhydrAMINE HCL 25 MG CAP PO PRN (21:00)
[2017-10-09] MEDS: HALOPERIDOL LACTATE 5 MG/ML AMP IM SCH (21:00)
[2017-10-09] MEDS: HALOPERIDOL 5 MG TAB PO SCH (22:30)
[2017-10-09] MEDS: EUCERIN CREAM 120 GM JAR TOPICAL PRN (22:53)
[2017-10-10] MEDS: ACETAMINOPHEN/HYDROcodone 325 MG/10 MG TAB PO PRN ×3 (01:38→12:05)
[2017-10-10] MEDS: EUCERIN CREAM 120 GM JAR TOPICAL PRN ×2 (07:25→21:41)
[2017-10-10] MEDS ORDERED: BACITRACIN OINT 0.9 GM PKT TOPICAL ONE (08:15)
[2017-10-10] MEDS: HALOPERIDOL 5 MG TAB PO SCH ×2 (09:00→21:31)
[2017-10-10] MEDS: HALOPERIDOL LACTATE 5 MG/ML AMP IM SCH ×2 (09:00→21:00)
[2017-10-10] MEDS: HEPARIN SODIUM - SQ 10,000 UNITS/ML VIAL SQ SCH ×2 (09:00→21:00)
[2017-10-10] MEDS: CYANOCOBALAMIN 1000 MCG/ML VIAL IM SCH (12:00)
--- NOTE | 2017-10-10 15:37 | HHI.PYPN ---
Subjective Remarks Patient seen today in coverage for Dr. Fonseca, patient seen in day room with nurse emiliano cerrato, chart review, discussed with nurse. Patient compliant medications. Patient continues somatic needing sometimes redirection talk about mood issues. He does denies suicidality homicidality voices or visions. For now continue treatment Review of Systems Except as stated in HPI: all other systems reviewed are Neg Mental Status Examination Appearance: Disheveled, Other (covered in blankets) Consciousness: Alert Orientation: x4 Motor Activity: Abnormal gait Speech: Unremarkable Language: Adequate Fund of Knowledge: Inadequate Attention and Concentration: Adequate Memory: Unremarkable Mood: Oppositional, Anxious Affect: Irritable, Anxious Thought Process & Associations: Loose associations, Tangential Thought Content: Bizarre thinking, Preoccupations, Delusional Hallucination Type: None Delusion Type: Paranoid, Somatic Suicidal Ideation: No Suicidal Plan: No Suicidal Intention: No Homicidal Ideation: No Homicidal Plan: No Homicidal Intention: No Insight: Poor Judgment: Poor Results Vitals/IOs Vital Signs Date Time Temp Pulse Resp B/P (MAP) Pulse Ox O2 Delivery O2 Flow Rate FiO2 10/09/17 17:38 97.4 88 18 125/74 (91) 97 10/07/17 19:00 Room Air Intake and Output 10/10/17 10/10/17 10/11/17 08:00 16:00 00:00 Intake Total 240 ml 240 ml Balance 240 ml 240 ml Assessment & Plan Problem List: (1) Unspecified psychosis ICD Codes: F29 - Unspecified psychosis not due to a substance or known physiological condition Assessment & Plan Estimated LOS: days patient continues somewhat vigilant with referrals back to various experiences in the past. Compliant medications. For now continue treatment Justification for Cont. Inpt. At this time patient decompensated placed in the lower level of care Discharge Planning To be determined Jonas Lizarraga MD Oct 10, 2017 15:37
[2017-10-10 16:16] VITALS: BP 119/72; PULSE 76; RESP 18; TEMP 97.4; O2SAT 98
[2017-10-10] MEDS ORDERED: BACITRACIN TOP OINT 15 GM TUBE TOPICAL PRN (17:00)
--- NOTE | 2017-10-10 17:09 | PD.POD ---
Subjective Podiatric Problems Severe bilateral onychogryphosis Past Med/Surg/Social History Social History Smoking Status: Unknown If Ever Smoked Objective Vital Signs Vital Signs Date Time Temp Pulse Resp B/P (MAP) Pulse Ox O2 Delivery O2 Flow Rate FiO2 10/10/17 16:16 97.4 76 18 119/72 (88) 98 10/09/17 17:38 97.4 88 18 125/74 (91) 97 Coded Allergies: No Known Allergies (Verified Allergy, Unknown, 09/30/17) Physical Exam Remarks No changes from consult exam Assessment & Plan A/P 1) severe bilateral onycho -pt would only allow for debridement of lesser digit nails, hallux nails not done -this is the second attempt for debridement, a third attempt can not be made -bacitracin is 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
[2017-10-11] MEDS: ACETAMINOPHEN/HYDROcodone 325 MG/10 MG TAB PO PRN ×4 (00:12→18:16)
[2017-10-11 06:00] VITALS: BP 122/66; PULSE 76; RESP 18; TEMP 97.3; O2SAT 98
[2017-10-11] MEDS: HALOPERIDOL 5 MG TAB PO SCH ×2 (08:18→20:00)
[2017-10-11] MEDS: HALOPERIDOL LACTATE 5 MG/ML AMP IM SCH ×2 (08:23→20:00)
[2017-10-11] MEDS: HEPARIN SODIUM - SQ 10,000 UNITS/ML VIAL SQ SCH ×2 (09:00→20:00)
[2017-10-11] MEDS: CYANOCOBALAMIN 1000 MCG/ML VIAL IM SCH (12:00)
--- NOTE | 2017-10-11 15:30 | HHI.PYPN ---
Subjective Remarks Patient was seen and case discussed with nursing. Pt remains with bizarre delusions concerning her skin and various chemicals. Remains resistant and selective with medication; though, she is taking her po haldol. Insight remains poor. Mental Status Examination Appearance: Disheveled, Other (covered in blankets) Consciousness: Alert Orientation: x4 Motor Activity: Abnormal gait Speech: Unremarkable Language: Adequate Fund of Knowledge: Inadequate Attention and Concentration: Adequate Memory: Unremarkable Mood: Oppositional, Anxious Affect: Irritable, Anxious Thought Process & Associations: Loose associations, Tangential Thought Content: Bizarre thinking, Preoccupations, Delusional Hallucination Type: None Delusion Type: Paranoid, Somatic Suicidal Ideation: No Suicidal Plan: No Suicidal Intention: No Homicidal Ideation: No Homicidal Plan: No Homicidal Intention: No Insight: Poor Judgment: Poor Results Vitals/IOs Vital Signs Date Time Temp Pulse Resp B/P (MAP) Pulse Ox O2 Delivery O2 Flow Rate FiO2 10/11/17 06:00 97.3 76 18 122/66 (84) 98 10/07/17 19:00 Room Air Intake and Output 10/11/17 10/11/17 10/12/17 08:00 16:00 00:00 Intake Total 940 ml Balance 940 ml Assessment & Plan Problem List: (1) Unspecified psychosis ICD Codes: F29 - Unspecified psychosis not due to a substance or known physiological condition Assessment & Plan Continue current treatment plan Justification for Cont. Inpt. Patient would decompensate in a less restrictive setting. Quinten Anderson DO Oct 11, 2017 15:29
[2017-10-11 17:42] VITALS: BP 119/72; PULSE 76; RESP 18; TEMP 97.4; O2SAT 98
[2017-10-11] MEDS: EUCERIN CREAM 120 GM JAR TOPICAL PRN (20:57)
[2017-10-12] MEDS: ACETAMINOPHEN/HYDROcodone 325 MG/10 MG TAB PO PRN ×4 (00:45→18:27)
[2017-10-12 05:59] VITALS: BP 145/86; PULSE 98; RESP 16; TEMP 97.7; O2SAT 98
[2017-10-12] MEDS: HALOPERIDOL LACTATE 5 MG/ML AMP IM SCH ×2 (09:00→20:44)
[2017-10-12] MEDS: HEPARIN SODIUM - SQ 10,000 UNITS/ML VIAL SQ SCH ×2 (09:00→20:44)
[2017-10-12] MEDS: HALOPERIDOL 5 MG TAB PO SCH ×2 (09:04→20:43)
--- NOTE | 2017-10-12 11:19 | HHI.PYPN ---
Subjective Remarks Patient was seen and case discussed with nursing. Patient remains of various somatic complaints. She says that she is hard of breathing last night. Pulse ox was checked today and is 97. Continues to complain of effects to Haldol which are not evident during the interview. Continues to believe the chemicals or burning her skin. Insight remains poor. Mental Status Examination Appearance: Disheveled, Other (covered in blankets) Consciousness: Alert Orientation: x4 Motor Activity: Abnormal gait Speech: Unremarkable Language: Adequate Fund of Knowledge: Inadequate Attention and Concentration: Adequate Memory: Unremarkable Mood: Oppositional, Anxious Affect: Irritable, Anxious Thought Process & Associations: Loose associations, Tangential Thought Content: Bizarre thinking, Preoccupations, Delusional Hallucination Type: None Delusion Type: Paranoid, Somatic Suicidal Ideation: No Suicidal Plan: No Suicidal Intention: No Homicidal Ideation: No Homicidal Plan: No Homicidal Intention: No Insight: Poor Judgment: Poor Results Vitals/IOs Vital Signs Date Time Temp Pulse Resp B/P (MAP) Pulse Ox O2 Delivery O2 Flow Rate FiO2 10/12/17 05:59 97.7 98 16 145/86 (105) 98 Intake and Output 10/12/17 10/12/17 10/13/17 08:00 16:00 00:00 Intake Total 720 ml 360 ml Balance 720 ml 360 ml Assessment & Plan Problem List: (1) Unspecified psychosis ICD Codes: F29 - Unspecified psychosis not due to a substance or known physiological condition Assessment & Plan Consider increasing Haldol tomorrow Justification for Cont. Inpt. Patient will decompensate in a less restrictive setting Quinten Anderson DO Oct 12, 2017 11:19
[2017-10-12] MEDS: CYANOCOBALAMIN 1000 MCG/ML VIAL IM SCH (11:58)
[2017-10-12 19:07] VITALS: BP 150/71; PULSE 93; RESP 18; TEMP 97.5; O2SAT 97
[2017-10-12] MEDS: EUCERIN CREAM 120 GM JAR TOPICAL PRN (20:42)
[2017-10-13] MEDS: ACETAMINOPHEN/HYDROcodone 325 MG/10 MG TAB PO PRN ×4 (00:50→19:14)
[2017-10-13 05:45] VITALS: BP 135/64; PULSE 87; RESP 16; TEMP 98; O2SAT 97
[2017-10-13] MEDS: HALOPERIDOL LACTATE 5 MG/ML AMP IM SCH ×2 (09:00→21:00)
[2017-10-13] MEDS: HEPARIN SODIUM - SQ 10,000 UNITS/ML VIAL SQ SCH ×2 (09:00→21:00)
[2017-10-13] MEDS: HALOPERIDOL 5 MG TAB PO SCH ×2 (09:00→21:42)
--- NOTE | 2017-10-13 11:37 | PD.TTN ---
Patient Problems 1. Discharge planning 2. Medication compliance 3. Knowledge deficit 4. Lack of coping skills Progress Toward Goals Provider Present: Dr. Gopi Fonseca Provider Input: 10/12/18 patient moved to 2600 unit awaiting if she becomes more mobile and more engaged - somatic delusions and fixations probably will remain 10/06/2017: per Dr. Fonseca, patient is refusing medication and service; will need to take to [facility] court Nurse(s) Present: RN Nurse(s) Input: 10/06/2017: patient requires redirection and coaching with meals, medication and treatment Psychiatric Counselors Present: Maye Alexis [facility] Psych Therapist Input: 10/12/18 patient to return to [facility] once stable, Friday she only focused on her clothing and was pleasant and cooperative and out in dayroom watching TV 10/06/2017; counselor will contact [facility] to gather additional information regarding BA from their facility. Group Spec/RT/OT/UMANA Present: Marcella Mane, GPS, Chris Peguero, OT Group Spec/RT/OT/UMANA Input: 10/12/18 only comes to excercise group 10/06/2017 patient is unable to participate with group activities Sanjuana Flynn LCSW Oct 13, 2017 11:37
[2017-10-13] MEDS: CYANOCOBALAMIN 1000 MCG/ML VIAL IM SCH (12:00)
[2017-10-13 18:09] VITALS: BP 146/67; PULSE 86; RESP 17; O2SAT 97
--- NOTE | 2017-10-13 18:41 | HHI.PYPN ---
Subjective Remarks Patient seen for follow-up, chart reviewed. Discussion with staff reported the patient continues to have somatic delusions although has been compliant with treatment. Patient was found sitting in wheelchair in the area noted to be calm and cooperative. Patient reports having a "reaction" 2 nights ago after having Haldol p.o. stating that she was having some shortness of breath but states that it resolved spontaneously but continued to report having good tolerance to medications thereafter. Patient states she took her medications today denies feeling depressed. Patient continues to report somatic delusions stating that her skin will be exposed to "toxins" in the area would cause her skin to be damaged although patient reported having able to use her room toilet she transferred from chair to toilet and back. Patient had not used regular toilet for quite some time and she reported having use bedpan even at her [facility]. She is requesting dressing change of her superficial on her thigh and was reminded that wound care consult had stated that dressing is not needed at this time but patient continues to insist of it having been changed. Patient was encouraged to get in the shower but states that she washes her hair in the sink. Patient also reported having been seen by podiatry over the weekend and having had some debridement of the onychomycosis. Review of Systems Except as stated in HPI: all other systems reviewed are Neg Mental Status Examination Appearance: Disheveled, Other (covered in blankets) Consciousness: Alert Orientation: x4 Motor Activity: Abnormal gait Speech: Unremarkable Language: Adequate Fund of Knowledge: Inadequate Attention and Concentration: Adequate Memory: Unremarkable Mood: Oppositional, Anxious Affect: Anxious Thought Process & Associations: Loose associations, Tangential Thought Content: Bizarre thinking, Preoccupations, Delusional Hallucination Type: None Delusion Type: Paranoid, Somatic Suicidal Ideation: No Suicidal Plan: No Suicidal Intention: No Homicidal Ideation: No Homicidal Plan: No Homicidal Intention: No Insight: Poor Judgment: Poor Results Vitals/IOs Vital Signs Date Time Temp Pulse Resp B/P (MAP) Pulse Ox O2 Delivery O2 Flow Rate FiO2 10/13/17 18:09 86 17 146/67 (93) 97 10/13/17 05:45 98.0 Intake and Output 10/13/17 10/13/17 10/14/17 08:00 16:00 00:00 Intake Total 240 ml Balance 240 ml Assessment & Plan Problem List: (1) Unspecified psychosis ICD Codes: F29 - Unspecified psychosis not due to a substance or known physiological condition Assessment & Plan Patient at this time continues to have somatic delusions regarding have her skin color exposed to room air as well as allergens and the area that causes her tooth loss. Patient compliant with medications. We will increase Haldol to 5 mg p.o. twice daily without potentiation for psychosis. Continue to encourage patient to participate in physical therapy, maintain personal hygiene and to use less of the wheelchair while on the unit that she continues to progress in radiating ambulatory strength. Continue to monitor mood and behavior. Once patient starts responding more to treatment to have a lessening of the intensity of this delusion will continue to encourage patient to comply with other recommendations as per treatment team. Discharge planning in progress Justification for Cont. Inpt. At risk for further decompensation at lower level of care. Discharge Planning Patient to return back to her assisted living facility once psychiatrically stable. [place] Fonseca MD Oct 13, 2017 18:41
[2017-10-14] MEDS: ACETAMINOPHEN/HYDROcodone 325 MG/10 MG TAB PO PRN ×4 (01:14→22:43)
[2017-10-14] MEDS: EUCERIN CREAM 120 GM JAR TOPICAL PRN (06:32)
[2017-10-14 08:00] VITALS: BP 151/88; PULSE 88; RESP 18; TEMP 97.8; O2SAT 95
[2017-10-14] MEDS: HALOPERIDOL LACTATE 5 MG/ML AMP IM SCH ×2 (08:42→21:00)
[2017-10-14] MEDS: HALOPERIDOL 5 MG TAB PO SCH ×2 (08:42→22:42)
[2017-10-14] MEDS: HEPARIN SODIUM - SQ 10,000 UNITS/ML VIAL SQ SCH ×2 (09:00→21:00)
[2017-10-14] MEDS: CYANOCOBALAMIN 1000 MCG/ML VIAL IM SCH (12:01)
--- NOTE | 2017-10-14 16:11 | HHI.PYPN ---
Subjective Remarks Patient is seen for follow-up, chart reviewed. Discussion nursing staff reported the patient continues to have somatic delusions. Patient was found in a wheelchair continue to be covered in multiple layers of clothing and blankets and continues to be perseverative on somatic symptoms stating that she is feeling shortness of breath and that she needs to be back on her oxygen or she will not make it to the end of the week. Patient also continued to be endorsing the delusion that her skin exposed to the air because her skin to break down. Patient is reporting transferring from chair to commode by herself but has yet to be seen ambulating in continues to rely on a wheelchair at this time. Patient was continued to be encouraged to participate in physical therapy to rely less on [place] more ambulatory. Patient continues also to have inconsistent reports of symptoms when taking her medications which she reports having some shortness of breath on one occasion and tolerated next dose well and going back and forth with this. Patient is agreeable to be visiting neurology to look into other options other than Lortabs to address her "neuropathy". Review of Systems Except as stated in HPI: all other systems reviewed are Neg Mental Status Examination Appearance: Disheveled, Other (covered in blankets) Consciousness: Alert Orientation: x4 Motor Activity: Abnormal gait Speech: Unremarkable Language: Adequate Fund of Knowledge: Inadequate Attention and Concentration: Adequate Memory: Unremarkable Mood: Anxious Affect: Anxious Thought Process & Associations: Loose associations, Tangential Thought Content: Bizarre thinking, Preoccupations, Delusional Hallucination Type: None Delusion Type: Paranoid, Somatic Suicidal Ideation: No Suicidal Plan: No Suicidal Intention: No Homicidal Ideation: No Homicidal Plan: No Homicidal Intention: No Insight: Poor Judgment: Poor Results Vitals/IOs Vital Signs Date Time Temp Pulse Resp B/P (MAP) Pulse Ox O2 Delivery O2 Flow Rate FiO2 10/14/17 08:00 97.8 88 18 151/88 (109) 95 Intake and Output 10/14/17 10/14/17 10/15/17 08:00 16:00 00:00 Intake Total 2640 ml Balance 2640 ml Assessment & Plan Problem List: (1) Unspecified psychosis ICD Codes: F29 - Unspecified psychosis not due to a substance or known physiological condition Assessment & Plan Patient this time continues to have somatic delusions including shortness of breath which staff will continue to monitor vitals. Will consult hospitalist to come assess patient for recent elevated blood pressure readings. Continue to monitor response to recent increase in Haldol. We will also attempt to reconsult with neurology as patient now more amenable to other options to treat her neuropathy. Continue to monitor mood and behavior. Continue to encourage patient to participate in physical therapy and rely less on wheelchair. Discharge planning in progress Justification for Cont. Inpt. At risk for further decompensation if at lower level of care Discharge Planning Back to her residence when psychiatrically stable. [place] Fonseca MD Oct 14, 2017 16:11
[2017-10-14 16:37] VITALS: BP 161/76; PULSE 95; RESP 18; TEMP 98.2; O2SAT 95
[2017-10-14 18:00] VITALS: BP 161/76; PULSE 95; RESP 18; TEMP 98.2; O2SAT 95
[2017-10-15] MEDS: ACETAMINOPHEN/HYDROcodone 325 MG/10 MG TAB PO PRN ×4 (05:17→23:18)
[2017-10-15 06:00] VITALS: BP 162/79; PULSE 89; RESP 22; TEMP 96.5; O2SAT 97
[2017-10-15] MEDS: HEPARIN SODIUM - SQ 10,000 UNITS/ML VIAL SQ SCH ×2 (09:00→21:00)
[2017-10-15] MEDS: HALOPERIDOL LACTATE 5 MG/ML AMP IM SCH ×2 (09:00→21:00)
[2017-10-15] MEDS: HALOPERIDOL 5 MG TAB PO SCH ×2 (09:38→21:00)
[2017-10-15 10:32] LABS: HEMATOCRIT 38.2 % (35.0-46.0); HEMOGLOBIN 12.9 GM/DL (11.6-15.3); MEAN CELL VOLUME 87.5 FL (80.0-100.0); MEAN CORPUSCULAR HEMOGLOBIN 29.5 PG (27.0-34.0); MEAN CORPUSCULAR HGB CONC 33.7 % (32.0-36.0); MEAN PLATELET VOLUME 6.7 FL (7.0-11.0); PLATELET COUNT 324 TH/MM3 (150-450); RED BLOOD COUNT 4.37 MIL/MM3 (4.00-5.30); RED CELL DISTRIBUTION WIDTH 13.7 % (11.6-17.2); WHITE BLOOD COUNT 7.3 TH/MM3 (4.0-11.0)
[2017-10-15 11:06] LABS: BICARBONATE 26.2 MEQ/L (21.0-32.0); CALCIUM 8.7 MG/DL (8.5-10.1); CREATININE 0.46 MG/DL (0.50-1.00)
--- NOTE | 2017-10-15 11:53 | HHI.PR ---
Subjective Remarks Reconsult for reports of shortness of breath as well as increase blood pressure. Patient is seen and examined sitting up in her wheelchair in the hallway, she is known to me from previous visits. She reports that she has been progressively getting weak with shortness of breath and believes this is related to the fact that she is no longer on oxygen. She is requesting that I go on the Internet and I look to see what reactive airway disease is. She reports that the way that oxygen saturation is measured here in the hospital is not accurate. Patient reports that with changes in the ear or if something irritates her nose this could cause her to suddenly stop breathing. She reports that if she inhales something this could significantly affect her and believes that this is something that also happened to her toenails. She believes that something got under her toenails and this caused the nails to grow back towards her as she explains. She is requesting that we give her oxygen for several days to see if this will help with her blood pressure. She reports that her pain continues and also believes that this may be causing her blood pressure to be increased. She does not want to try anything for blood pressure, not willing to take anything for her low potassium this morning. She is also requesting that I do not put in any orders for medications because she states that she does not want it to be charted as her refusing medications. Discussed with nurse who reports that patient continues to be very delusional, oxygen saturations have been within normal limits. Objective Vitals Vital Signs Date Time Temp Pulse Resp B/P (MAP) Pulse Ox O2 Delivery O2 Flow Rate FiO2 10/15/17 06:00 96.5 89 22 162/79 (106) 97 10/14/17 18:00 98.2 95 18 161/76 (104) 95 10/14/17 16:37 98.2 95 18 161/76 (104) 95 I/O 10/14/17 10/14/17 10/14/17 10/15/17 10/15/17 10/15/17 07:00 15:00 23:00 07:00 15:00 23:00 Intake Total 2640 ml 720 ml Balance 2640 ml 720 ml Intake Oral 2640 ml 720 ml Result Diagram: 10/15/17 0931 10/15/17 0931 Imaging Last Impressions Head CT 10/01/17 0000 Signed Impressions: Service Date/Time: Sunday, October 01, 2017 20:31 - CONCLUSION: Normal examination for a patient of this age. Florentino Harris MD Objective Remarks GENERAL: Well-nourished, well-developed elderly female patient in [facility]. SKIN: Warm and moist. HEAD: Normocephalic. Atraumatic. EYES: Pupils equal and round. No scleral icterus. No injection or drainage. ENT: No nasal bleeding or discharge. Mucous membranes pink and moist. NECK: Supple. Trachea midline. CARDIOVASCULAR: Regular rate and rhythm. S1, S2 noted. No murmur appreciated. RESPIRATORY: No accessory muscle use. Clear to auscultation. Breath sounds equal bilaterally. GASTROINTESTINAL: Abdomen soft, non-tender, nondistended. Normoactive bowel sounds x4. MUSCULOSKELETAL: No obvious deformities. Moves bilateral upper and lower extremities without difficulties. NEUROLOGICAL: Awake and alert. No obvious cranial nerve deficits. Motor grossly within normal limits. Normal speech. 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 Patient who resides in [place] [facility] was [place] acted secondary to questionable altered mental status, and delusions. Unspecified psychosis - Treatment per psychiatry. - Head CT scan completed on 10/01 reviewed, normal exam for patient's age. - TSH within normal range Elevated blood pressure -BP for the past 2 days ranging in the 160s/170s -Start amlodipine 5 mg, discussed with patient medication, also explained to patient that she does have the right to refuse medications if she wishes to do so. -Discuss the fact that oxygen need is not likely resulting in elevated BP -Continue monitoring BP trend Hypokalemia -Potassium this morning 3.4, will provide with 25 meq's of KCl p.o. -Patient also states that she will be eating a banana tonight during dinner Reactive airway disease -No wheezing noted on exam, oxygen saturation stable -Request for oxygen likely related to psychiatric issues. Neuropathy/chronic pain - Continue Dupuyer 10 mg every 6 hours as needed for pain -Neurology once again reconsulted by primary team. Perineal rash -Patient did not allow for exam -Will allow female nurse to view rash later tonight during bed bath. Overgrown toenails - Podiatry consulted, was supposed to have toenails trimmed however postponed due to possible discharge. DVT prophylaxis - start Subcutaneous heparin (patient refusing) Discussed with nurse. Eugene Camejo Oct 15, 2017 11:53
[2017-10-15] MEDS ORDERED: POTASSIUM CHLORIDE 25 MEQ EFFERVESCENT TAB PO ONE (13:00)
--- NOTE | 2017-10-15 17:04 | HHI.PYPN ---
Subjective Remarks Patient seen for follow-up, chart reviewed. Discussion staff reported the patient was compliant with labs this morning but refused EKG within with somatic complaints. Patient was found sitting in a wheelchair in the hallway, cooperative. Patient states that she had only taking half of the dose recommended although was attempting to bargain with film writer continuing with minimal dose. Patient also was reluctant to take potassium replacement due to recent labs showing patient clinic. Patient later agreed and drank potassium supplement was noted to be upset stating that she was having "reactions" from the Haldol. Patient continues to endorse somatic delusions of her skin being exposed, toxins and behavior affecting her breathing. Patient refused interview when being addressed about shallowing stated that she felt too tired to continue to speak today. Review of Systems Except as stated in HPI: all other systems reviewed are Neg Mental Status Examination Appearance: Disheveled, Malodorous, Other (covered in blankets) Consciousness: Alert Orientation: x4 Motor Activity: Abnormal gait Speech: Unremarkable Language: Adequate Fund of Knowledge: Inadequate Attention and Concentration: Adequate Memory: Unremarkable Mood: Anxious Affect: Anxious Thought Process & Associations: Loose associations, Tangential Thought Content: Bizarre thinking, Preoccupations, Delusional Hallucination Type: None Delusion Type: Paranoid, Somatic Suicidal Ideation: No Suicidal Plan: No Suicidal Intention: No Homicidal Ideation: No Homicidal Plan: No Homicidal Intention: No Insight: Poor Judgment: Poor Results Labs Labs reviewed Test 10/15/17 09:31 White Blood Count 7.3 TH/MM3 Red Blood Count 4.37 MIL/MM3 Hemoglobin 12.9 GM/DL Hematocrit 38.2 % Mean Corpuscular Volume 87.5 FL Mean Corpuscular Hemoglobin 29.5 PG Mean Corpuscular Hemoglobin Concent 33.7 % Red Cell Distribution Width 13.7 % Platelet Count 324 TH/MM3 Mean Platelet Volume 6.7 FL Blood Urea Nitrogen 12 MG/DL Creatinine 0.46 MG/DL Random Glucose 142 MG/DL Calcium Level 8.7 MG/DL Sodium Level 138 MEQ/L Potassium Level 3.4 MEQ/L Chloride Level 103 MEQ/L Carbon Dioxide Level 26.2 MEQ/L Anion Gap 9 MEQ/L Estimat Glomerular Filtration Rate 134 ML/MIN Vitals/IOs Vital Signs Date Time Temp Pulse Resp B/P (MAP) Pulse Ox O2 Delivery O2 Flow Rate FiO2 10/15/17 06:00 96.5 89 22 162/79 (620) 75 Assessment & Plan Problem List: (1) Unspecified psychosis ICD Codes: F29 - Unspecified psychosis not due to a substance or known physiological condition Assessment & Plan Patient this time continues with somatic delusions continues to be resistant to recommendations and treatment. 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 Patient continues to be resistant to recommendations. We will continue current treatment as patient has not been taking complete dose recently. Continue to monitor mood and behavior. Continue to encourage patient to participate in personal hygiene. We will reorder EKG as patient refused again to comply. Discharge planning in progress. Justification for Cont. Inpt. At risk for decompensation and lower level of care. Discharge Planning To return to [place] Ruby MD Oct 15, 2017 17:03
[2017-10-15 18:00] VITALS: BP 151/66; PULSE 80; RESP 17; O2SAT 97
--- NOTE | 2017-10-15 19:48 | HHI.PR ---
Review/Management Diagnosis/Plan: (1) Polyneuropathy ICD Codes: G62.9 - Polyneuropathy, unspecified Status: Chronic Plan: hx of neuropathy x 15 years. possible small fiber type challenging exam due to hyperpathia multiple testing done outpatient. no current records available intolerant/sensitive to multiple medications nml thyroid function chronic problem x 15 years. no acute issues recs the patient tells me she wants her norco q6hrs. she does not want any alternative. she states she asked me to see her again to reiterate this to the psych team sign off. call me directly if you have any questions (2) B12 deficiency ICD Codes: E53.8 - Deficiency of other specified B group vitamins Status: Chronic Plan: on replacement (3) Somatic type delusional disorder, with bizarre content, multiple episodes currently in acute episode ICD Codes: F22 - Delusional disorders Status: Acute Plan: per psych (4) Paranoid delusion ICD Codes: F22 - Delusional disorders Status: Acute Plan: per psych Subjective Subjective Comments No acute events reported c/o not getting her norco on time. needs it q6hrs for neuropathic pain control No headache No chest pain No dyspnea Active Medications Current Medications Medications (Trade) Dose Ordered Sig/Cesia Route Start Time Stop Time Status Last Admin (Tylenol) 650 mg Q4H PRN PO 10/01/17 00:00 (Milk Of Magnesia Liq) 30 ml DAILY PRN PO 10/01/17 00:00 (Mag-Al Plus Susp Liq) 30 ml Q6H PRN PO 10/01/17 00:00 (Habitrol 21 Mg Patch.24 Hr) 1 patch DAILY PRN T-DERMAL 10/01/17 00:00 (Kermit 10-325 Mg) 1 tab Q6H PRN PO 10/01/17 14:10 10/15/17 17:26 (Heparin Inj) 5,000 units Q12HR SQ 10/02/17 21:00 (Vitamin B12 Inj) 1,000 mcg Q7D IM 10/21/17 12:00 11/11/17 12:01 (Vitamin B12 Inj) 1,000 mcg Q30D IM 12/12/17 12:00 (Eucerin Cream) 1 applic Q6H PRN TOPICAL 10/08/17 12:15 2/20/18 06:32 (Ativan) 0.5 mg Q6H PRN PO 10/09/17 16:15 (Haldol Inj) 2.5 mg BID IM 10/09/17 21:00 (Benadryl) 25 mg HS PRN PO 10/09/17 21:00 (Baciguent Oint) 1 applic Q12HR PRN TOPICAL 10/10/17 17:00 (Haldol) 5 mg BID PO 10/13/17 21:00 10/15/17 09:38 (Norvasc) 5 mg DAILY PO 10/16/17 09:00 Allergies Allergies Coded Allergies No Known Allergies (Verified Allergy, Unknown, 09/30/17) Review of Systems All other ROS: ROS reviewed as documented in chart Exam I&O / VS Vital Signs Date Time Temp Pulse Resp B/P (MAP) Pulse Ox O2 Delivery O2 Flow Rate FiO2 10/15/17 18:00 80 17 151/66 (94) 97 10/15/17 06:00 96.5 89 22 162/79 (106) 97 General: Alert and Oriented, No acute distress Eye: EOMI Respiratory: Non-labored respirations Cardiology: Normal rate Neurologic: Alert, Oriented Psychiatric: Cooperative Exam Comments alert, ox 3, eomi, face sym, ou 3-2mm, no focal weakness, resists sensory exam of rt leg, mild reduced pin in distal left foot and hands hyperpathic difficult to examine, msr sym, no clonus, planterflexor Objective Micro and Labs Laboratory Tests Test 10/15/17 09:31 White Blood Count 7.3 Red Blood Count 4.37 Hemoglobin 12.9 Hematocrit 38.2 Mean Corpuscular Volume 87.5 Mean Corpuscular Hemoglobin 29.5 Mean Corpuscular Hemoglobin Concent 33.7 Red Cell Distribution Width 13.7 Platelet Count 324 Mean Platelet Volume 6.7 Blood Urea Nitrogen 12 Creatinine 0.46 Random Glucose 142 Calcium Level 8.7 Sodium Level 138 Potassium Level 3.4 Chloride Level 103 Carbon Dioxide Level 26.2 Anion Gap 9 Estimat Glomerular Filtration Rate 134 Danielito Jay MD Oct 15, 2017 19:48
[2017-10-15] MEDS: EUCERIN CREAM 120 GM JAR TOPICAL PRN (23:04)
[2017-10-16 06:03] VITALS: BP 144/64; PULSE 76; RESP 18; TEMP 98.4; O2SAT 96
--- NOTE | 2017-10-16 08:03 | EKG ---
Date Performed: 10/15/2017 Time Performed: 22:08:09 PTAGE: 72 years EKG: Sinus rhythm LOW QRS VOLTAGE IN PRECORDIAL LEADS POSSIBLE RIGHT VENTRICULAR CONDUCTION DELAY BORDERLINE ECG NO PREVIOUS TRACING DOCTOR: Diane Edwards Interpretating Date/Time 10/16/2017 08:01:42
[2017-10-16] MEDS: HALOPERIDOL 5 MG TAB PO SCH ×2 (08:50→20:39)
[2017-10-16] MEDS: amLODIPine BESYLATE 5 MG TAB PO SCH (08:54)
[2017-10-16] MEDS: HALOPERIDOL LACTATE 5 MG/ML AMP IM SCH ×2 (09:00→20:40)
[2017-10-16] MEDS: HEPARIN SODIUM - SQ 10,000 UNITS/ML VIAL SQ SCH ×2 (09:00→20:40)
[2017-10-16] MEDS: ACETAMINOPHEN/HYDROcodone 325 MG/10 MG TAB PO PRN ×3 (11:07→23:29)
--- NOTE | 2017-10-16 12:01 | HHI.PYPN ---
Subjective Remarks Patient seen for follow, chart reviewed. Discussion nursing staff reported the patient continues to have somatic delusions in demanding. Patient was found to wheelchair Ha[place] noted to be calm and cooperative. Patient states that she had participated in EKG yesterday, continues to refuse antihypertensive medications and only agreed to Haldol and Lortabs. Patient requesting mouthwash of peroxide and resistant or reluctant to use toothpaste was encouraged to maintaining good oral hygiene. Patient has been compliant with Haldol and analgesics. Patient was visited by neurology for possible alternative treatments to her "neuropathy" but refused despite her having told poem writer that she would consider other alternatives. Patient also requesting to have other food items with her meal and is restricted due to her current diet order. Review of Systems Except as stated in HPI: all other systems reviewed are Neg Mental Status Examination Appearance: Disheveled, Malodorous, Other (covered in blankets) Consciousness: Alert Orientation: x4 Motor Activity: Abnormal gait Speech: Unremarkable Language: Adequate Fund of Knowledge: Inadequate Attention and Concentration: Adequate Memory: Unremarkable Mood: Anxious Affect: Anxious Thought Process & Associations: Loose associations, Tangential Thought Content: Bizarre thinking, Preoccupations, Delusional Hallucination Type: None Delusion Type: Paranoid, Somatic Suicidal Ideation: No Suicidal Plan: No Suicidal Intention: No Homicidal Ideation: No Homicidal Plan: No Homicidal Intention: No Insight: Poor Judgment: Poor Results Vitals/IOs Vital Signs Date Time Temp Pulse Resp B/P (MAP) Pulse Ox O2 Delivery O2 Flow Rate FiO2 10/16/17 06:03 98.4 76 18 144/64 (90) 96 Assessment & Plan Problem List: (1) Unspecified psychosis ICD Codes: F29 - Unspecified psychosis not due to a substance or known physiological condition Assessment & Plan Patient continues with bizarre and somatic delusions. Patient compliant with Haldol, continue current dose for now as patient appears to be more lending agreeable to care. Patient initially refuses EKG but agreed later in the day, EKG reviewed (QTC is 387). Continue current treatment. We will modify patient' s diet order after discussion with dietitian. Continue to encourage patient to be out of the wheelchair and to engage in ambulation. Patient to continue working with physical therapy for the same. Discharge planning in progress. Justification for Cont. Inpt. At risk for decompensation at lower level of care Discharge Planning Back to assisted living facility [place] Fonseca MD Oct 16, 2017 12:01
--- NOTE | 2017-10-16 12:03 | HHI.PR ---
Subjective Remarks Follow up for HTN and hypokalemia. Patient is seen and examined in her wheelchair in the day room today. She is pleasant and appears to be in no distress. She tells me that she took that potassium yesterday and feels as if this helped, today she repots that she is not feeling as weak. She would like to have a banana every night with dinner as well as vanilla yogurt for the health of her stomach. Discussed the fact that she did not take BP medication and she states that this will come down. She denies any fevers, chills, N/V/D, or cough. She reports that she went outside and she enjoyed this. Objective Vitals Vital Signs Date Time Temp Pulse Resp B/P (MAP) Pulse Ox O2 Delivery O2 Flow Rate FiO2 10/16/17 06:03 98.4 76 18 144/64 (90) 96 10/15/17 18:00 80 17 151/66 (94) 97 Result Diagram: 10/15/17 0931 10/15/17 0931 Imaging Last Impressions Head CT 10/01/17 0000 Signed Impressions: Service Date/Time: Sunday, October 01, 2017 20:31 - CONCLUSION: Normal examination for a patient of this age. Florentino Harris MD Objective Remarks GENERAL: Well-nourished, well-developed elderly female patient in [facility]. SKIN: Warm and moist. HEAD: Normocephalic. Atraumatic. EYES: Pupils equal and round. No scleral icterus. No injection or drainage. ENT: No nasal bleeding or discharge. Mucous membranes pink and moist. NECK: Supple. Trachea midline. CARDIOVASCULAR: Regular rate and rhythm. S1, S2 noted. No murmur appreciated. RESPIRATORY: No accessory muscle use. Clear to auscultation. Breath sounds equal bilaterally. GASTROINTESTINAL: Abdomen soft, non-tender, nondistended. Normoactive bowel sounds x4. MUSCULOSKELETAL: No obvious deformities. Moves bilateral upper and lower extremities without difficulties. NEUROLOGICAL: Awake and alert. No obvious cranial nerve deficits. Motor grossly within normal limits. Normal speech. 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 Patient who resides in prison was [place] acted secondary to questionable altered mental status, and delusions. Unspecified psychosis - Treatment per psychiatry. - Head CT scan completed on 10/01 reviewed, normal exam for patient's age. - TSH within normal range Elevated blood pressure -BP this AM slightly better 144/64 -Started amlodipine 5 mg, however patient refused. - Continues to believe this will resolve itself. -Continue monitoring BP trend, if BP meds continue to be refused, will sign off. Hypokalemia -Potassium this morning 3.4, 25 meq's of KCl p.o. Recheck K 4.0 - Banana with dinner Reactive airway disease -No wheezing noted on exam, oxygen saturation stable -Request for oxygen likely related to psychiatric issues. Neuropathy/chronic pain - Continue [place] 10 mg every 6 hours as needed for pain - Neurology once again reconsulted by primary team. Perineal rash -Patient did not allow for exam -Will allow female nurse to view rash later tonight during bed bath. Overgrown toenails - Podiatry consulted, was supposed to have toenails trimmed however postponed due to possible discharge. DVT prophylaxis - start Subcutaneous heparin (patient refusing) Discussed with nurse. Eugene Camejo Oct 16, 2017 12:03
[2017-10-16 18:25] VITALS: BP 145/69; PULSE 83; RESP 15; TEMP 97.2; O2SAT 97
[2017-10-17] MEDS: ACETAMINOPHEN/HYDROcodone 325 MG/10 MG TAB PO PRN ×3 (05:29→18:46)
[2017-10-17 06:02] VITALS: BP 153/70; PULSE 76; RESP 16; TEMP 95.6; O2SAT 98
[2017-10-17] MEDS: amLODIPine BESYLATE 5 MG TAB PO SCH (09:00)
[2017-10-17] MEDS: HALOPERIDOL LACTATE 5 MG/ML AMP IM SCH ×4 (09:00→21:00)
[2017-10-17] MEDS: HALOPERIDOL 5 MG TAB PO SCH (09:00)
[2017-10-17] MEDS: HEPARIN SODIUM - SQ 10,000 UNITS/ML VIAL SQ SCH ×2 (09:00→20:49)
--- NOTE | 2017-10-17 13:57 | HHI.PR ---
Subjective Remarks Follow up for HTN and hypokalemia. Patient is seen and examined sitting up in her wheelchair in the day room. She repots that she still requires oxygen and that this will make her get stronger. She tells me that no one will believe he but that this is true and that her doctor in fact wrote a prescription for her so that she can have oxygen 3L when she is outdoors and 5L when she is in her room. This is due to the pressure of the atmosphere and the fact that when she is in her room there is not a lot of circulating air. She denies any fever, chills, nausea, vomiting, or diarrhea. She is asking if she can have cream for her bottoms. Objective Vitals Vital Signs Date Time Temp Pulse Resp B/P (MAP) Pulse Ox O2 Delivery O2 Flow Rate FiO2 10/17/17 06:02 95.6 76 16 153/70 (97) 98 10/16/17 18:25 97.2 83 15 145/69 (94) 97 Result Diagram: 10/15/17 0931 10/16/17 1235 Imaging Last Impressions Head CT 10/01/17 0000 Signed Impressions: Service Date/Time: Sunday, October 01, 2017 20:31 - CONCLUSION: Normal examination for a patient of this age. Florentino Harris MD Objective Remarks GENERAL: Well-nourished, well-developed elderly female patient in [facility]. SKIN: Warm and moist. HEAD: Normocephalic. EYES: Pupils equal and round. No scleral icterus. No injection or drainage. ENT: No nasal bleeding or discharge. Mucous membranes pink and moist. NECK: Trachea midline. CARDIOVASCULAR: Regular rate and rhythm. S1, S2 noted. No murmur appreciated. RESPIRATORY: No accessory muscle use. Clear to auscultation. Breath sounds equal bilaterally. GASTROINTESTINAL: Abdomen soft, non-tender. Normoactive bowel sounds x4. MUSCULOSKELETAL: No obvious deformities. Moves bilateral upper and lower extremities without difficulties. NEUROLOGICAL: Awake and alert. No obvious cranial nerve deficits. Motor grossly within normal limits. Normal speech. 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 Patient who resides in longterm was [place] acted secondary to questionable altered mental status, and delusions. Unspecified psychosis - Treatment per psychiatry. - Head CT scan completed on 10/01 reviewed, normal exam for patient's age. - TSH within normal range Elevated blood pressure -BP continues to be elevated. Reiterated to patient the importance of BP control as she continues to refuse antihypertensive medication. - Continues to believe this will resolve itself. - Discussed with patient and nurse [facility] will be signing off since she has been refusing Amlodipine. Hypokalemia -Potassium this morning 3.4, 25 meq's of KCl p.o. Recheck K 4.0 - Banana with dinner Reactive airway disease -No wheezing noted on exam, oxygen saturation stable -Request for oxygen likely related to psychiatric issues. Neuropathy/chronic pain - Continue [place] 10 mg every 6 hours as needed for pain - Neurology once again reconsulted by primary team. Perineal rash -Patient does not allow for exam -Zinc Oxide to areas prone to skin breakdown. Overgrown toenails - Podiatry consulted, was supposed to have toenails trimmed however patient reluctant to treatment and recommendations due to upcoming court date. DVT prophylaxis - start Subcutaneous heparin (patient refusing) Discussed with nurse. [facility] will sign off, as she continues to refuse antihypertensive medication despite discussing this with her, please reconsult if needed. Eugene Camejo Oct 17, 2017 13:57
--- NOTE | 2017-10-17 18:46 | HHI.PYPN ---
Subjective Remarks Patient seen for follow-up, chart reviewed. Discussion nursing staff reported the patient continues to refuse cooperating with nursing staff for evaluation of her skin and she is constantly covered in blankets and clothes. Patient was found sitting a wheelchair B, cooperative. Patient continued with somatic delusions, resistant to allowing staff to remove clothing and blankets. Discussion about cross titration of Haldol to risperidone was discussed which patient was resistant to acknowledged. Patient was encouraged to cooperate with evaluation as well as to continue physical therapy to regain more independent from wheelchair which she continues to be reluctant with. Review of Systems Except as stated in HPI: all other systems reviewed are Neg Mental Status Examination Appearance: Disheveled, Malodorous, Other (covered in blankets) Consciousness: Alert Orientation: x4 Motor Activity: Abnormal gait Speech: Unremarkable Language: Adequate Fund of Knowledge: Inadequate Attention and Concentration: Adequate Memory: Unremarkable Mood: Anxious Affect: Anxious Thought Process & Associations: Loose associations, Tangential Thought Content: Bizarre thinking, Preoccupations, Delusional Hallucination Type: None Delusion Type: Paranoid, Somatic Suicidal Ideation: No Suicidal Plan: No Suicidal Intention: No Homicidal Ideation: No Homicidal Plan: No Homicidal Intention: No Insight: Poor Judgment: Poor Results Vitals/IOs Vital Signs Date Time Temp Pulse Resp B/P (MAP) Pulse Ox O2 Delivery O2 Flow Rate FiO2 10/17/17 13:15 12 10/17/17 06:02 95.6 76 153/70 (97) 98 Assessment & Plan Problem List: (1) Unspecified psychosis ICD Codes: F29 - Unspecified psychosis not due to a substance or known physiological condition Assessment & Plan Patient continues with somatic delusions 2 cooperating with staff for evaluation and care, with limited participation with physical therapy he continues to have multiple layers of clothing secondary to her delusion that her skin will "break out in bleed". We will cross titrate patient from Haldol to risperidone. Continue to encourage patient to participate with physical therapy, participated in personal hygiene. Continue to monitor mood and behavior. Discharge planning in progress. Justification for Cont. Inpt. At risk for further decompensation if at lower level of care. Discharge Planning Back to senior care facility upon psychiatric stabilization. [place] Fonseca MD Oct 17, 2017 18:46
[2017-10-17] MEDS: risperiDONE 0.25 MG TAB PO SCH (20:45)
[2017-10-17] MEDS ORDERED: PILL SPLITTER OTHER PRN (21:00)
[2017-10-18] MEDS: ACETAMINOPHEN/HYDROcodone 325 MG/10 MG TAB PO PRN ×4 (01:06→21:07)
[2017-10-18] MEDS: EUCERIN CREAM 120 GM JAR TOPICAL PRN (01:19)
[2017-10-18 05:28] VITALS: BP 126/61; PULSE 84; RESP 16; TEMP 96.5; O2SAT 98
[2017-10-18] MEDS: HALOPERIDOL LACTATE 5 MG/ML AMP IM SCH ×2 (08:21→21:00)
[2017-10-18] MEDS: HEPARIN SODIUM - SQ 10,000 UNITS/ML VIAL SQ SCH ×2 (09:00→21:00)
[2017-10-18] MEDS: amLODIPine BESYLATE 5 MG TAB PO SCH (09:00)
[2017-10-18] MEDS: risperiDONE 0.25 MG TAB PO SCH ×2 (10:19→21:00)
--- NOTE | 2017-10-18 12:06 | HHI.PYPN ---
Subjective Remarks Pt seen and discussed with staff. She has remained wrapped in layers of blankets and clothing and has been refusing nursing assessments. She is paranoid and inspects medications to make sure that they have not been tampered with. She has been sitting in a wheelchair but RNs observed pt walking and transferring self in her room without difficulty in her room. She is paranoid and focused on bizarre somatic delusions (believes that if skin is exposed to air she will break apart and she doesn't "absorb" the oxygen in her room and must stay in the hallways. requested that she be pushed "really fast" in wheelchair in order to absorb oxygen") She states that her numerous layers of clothing and blankets are her "hazmat suit" and she is allergic to air. "Air rots the nerves in the teeth which attack the body." She insists that she is not "crazy" and accuses the staff at [facility] of giving her drugs to make her unconscious as punishment. Mental Status Examination Appearance: Disheveled, Malodorous, Other (covered in blankets) Consciousness: Alert Orientation: x4 Motor Activity: Abnormal gait Speech: Unremarkable Language: Adequate Fund of Knowledge: Inadequate Attention and Concentration: Adequate Memory: Unremarkable Mood: Anxious Affect: Anxious Thought Process & Associations: Loose associations, Tangential Thought Content: Bizarre thinking, Preoccupations, Delusional Hallucination Type: None Delusion Type: Bizarre, Paranoid, Somatic Suicidal Ideation: No Suicidal Plan: No Suicidal Intention: No Homicidal Ideation: No Homicidal Plan: No Homicidal Intention: No Insight: Poor Judgment: Poor Results Vitals/IOs Vital Signs Date Time Temp Pulse Resp B/P (MAP) Pulse Ox O2 Delivery O2 Flow Rate FiO2 10/18/17 09:20 12 10/18/17 05:28 96.5 84 126/61 (10) 98 Assessment & Plan Problem List: (1) Unspecified psychosis ICD Codes: F29 - Unspecified psychosis not due to a substance or known physiological condition Assessment & Plan continue current tx plan. Estimated LOS: days Justification for Cont. Inpt. impairments in reality testing Irina Baumann MD Oct 18, 2017 12:06
[2017-10-18 18:13] VITALS: BP 146/64; PULSE 71; RESP 16; O2SAT 97
[2017-10-18] MEDS: HALOPERIDOL 5 MG TAB PO SCH (21:00)
[2017-10-19] MEDS: ACETAMINOPHEN/HYDROcodone 325 MG/10 MG TAB PO PRN ×4 (04:14→23:02)
[2017-10-19 05:26] VITALS: BP 125/60; PULSE 71; RESP 17; TEMP 97.3; O2SAT 96
[2017-10-19] MEDS: HALOPERIDOL 5 MG TAB PO SCH ×2 (09:00→21:00)
[2017-10-19] MEDS: amLODIPine BESYLATE 5 MG TAB PO SCH (09:00)
[2017-10-19] MEDS: HEPARIN SODIUM - SQ 10,000 UNITS/ML VIAL SQ SCH ×2 (09:00→21:00)
[2017-10-19] MEDS: risperiDONE 0.25 MG TAB PO SCH ×2 (09:16→21:00)
--- NOTE | 2017-10-19 15:41 | HHI.PYPN ---
Subjective Remarks Pt seen and discussed with staff. She was bizarre last night and thought she was to God. She refused all of her medications except for risperdal today, stating that she didn't need them. No SI/HI Mental Status Examination Appearance: Disheveled, Malodorous, Other (covered in blankets) Consciousness: Alert Orientation: x4 Motor Activity: Abnormal gait Speech: Unremarkable Language: Adequate Fund of Knowledge: Inadequate Attention and Concentration: Adequate Memory: Unremarkable Mood: Anxious Affect: Anxious Thought Process & Associations: Loose associations, Tangential Thought Content: Bizarre thinking, Preoccupations, Delusional Hallucination Type: None Delusion Type: Bizarre, Paranoid, Somatic Suicidal Ideation: No Suicidal Plan: No Suicidal Intention: No Homicidal Ideation: No Homicidal Plan: No Homicidal Intention: No Insight: Poor Judgment: Poor Results Vitals/IOs Vital Signs Date Time Temp Pulse Resp B/P (MAP) Pulse Ox O2 Delivery O2 Flow Rate FiO2 10/19/17 05:26 97.3 71 17 125/60 (81) 96 Intake and Output 10/19/17 10/19/17 10/20/17 08:00 16:00 00:00 Intake Total 360 ml Balance 360 ml Assessment & Plan Problem List: (1) Unspecified psychosis ICD Codes: F29 - Unspecified psychosis not due to a substance or known physiological condition Assessment & Plan Continue current tx plan., Estimated LOS: days Justification for Cont. Inpt. psychosis Irina Baumann MD Oct 19, 2017 15:41
[2017-10-19 17:01] VITALS: BP 125/58; PULSE 75; RESP 18; TEMP 99; O2SAT 98
[2017-10-19] MEDS: EUCERIN CREAM 120 GM JAR TOPICAL PRN (23:02)
[2017-10-20] MEDS: EUCERIN CREAM 120 GM JAR TOPICAL PRN (05:07)
[2017-10-20] MEDS: ACETAMINOPHEN/HYDROcodone 325 MG/10 MG TAB PO PRN ×3 (05:07→17:15)
[2017-10-20] MEDS: ZINC OXIDE 20% OINT 30 GM TUBE TOPICAL PRN (05:08)
[2017-10-20 05:34] VITALS: BP 135/64; PULSE 77; RESP 18; TEMP 97.4; O2SAT 96
[2017-10-20] MEDS: amLODIPine BESYLATE 5 MG TAB PO SCH (09:00)
[2017-10-20] MEDS: HEPARIN SODIUM - SQ 10,000 UNITS/ML VIAL SQ SCH ×2 (09:00→21:00)
[2017-10-20] MEDS: risperiDONE 0.25 MG TAB PO SCH (09:00)
[2017-10-20] MEDS: HALOPERIDOL 5 MG TAB PO SCH ×2 (09:00→21:00)
[2017-10-20] MEDS ORDERED: risperiDONE 0.25 MG TAB PO ONE (13:00)
--- NOTE | 2017-10-20 15:10 | HHI.PYPN ---
Subjective Remarks Patient seen for follow-up, chart reviewed. Discussion nursing staff reported patient continues to refuse heparin, continues to adhere to Lortabs and with somatic delusions. Patient was found sitting in wheelchair continue to be wearing multiple garments and blankets. Patient continues to be resistant to allowing nursing staff to evaluate her skin as well as for possible skin lesions due to patient being mostly sitting wheelchair. Patient has been adherent to risperidone but had been refusing to down titration of Haldol over the weekend. Patient was encouraged to continue to adhere to recommendations for evaluation which she acknowledged. Review of Systems Except as stated in HPI: all other systems reviewed are Neg Mental Status Examination Appearance: Disheveled, Other (covered in blankets) Consciousness: Alert Orientation: x4 Motor Activity: Abnormal gait Speech: Unremarkable Language: Adequate Fund of Knowledge: Inadequate Attention and Concentration: Adequate Memory: Unremarkable Mood: Anxious Affect: Anxious Thought Process & Associations: Loose associations, Tangential Thought Content: Bizarre thinking, Preoccupations, Delusional Hallucination Type: None Delusion Type: Bizarre, Paranoid, Somatic Suicidal Ideation: No Suicidal Plan: No Suicidal Intention: No Homicidal Ideation: No Homicidal Plan: No Homicidal Intention: No Insight: Poor Judgment: Poor Results Vitals/IOs Vital Signs Date Time Temp Pulse Resp B/P (MAP) Pulse Ox O2 Delivery O2 Flow Rate FiO2 10/20/17 05:34 97.4 77 18 135/64 (87) 96 Assessment & Plan Problem List: (1) Unspecified psychosis ICD Codes: F29 - Unspecified psychosis not due to a substance or known physiological condition Assessment & Plan Patient is having continuous somatic delusions he continues to be resistant to allowing consistent evaluation by nursing staff. We will continue to titrate risperidone and continue to encourage patient to continue physical therapy and require more ambulation. Continue to monitor mood and behavior. Discharge planning in progress Justification for Cont. Inpt. At risk for further decompensation if at lower level of care Discharge Planning Patient return back to assisted-living facility. Rome Fonseca MD Oct 20, 2017 15:10
[2017-10-20 18:15] VITALS: BP 119/65; PULSE 88; RESP 18; TEMP 97.3; O2SAT 96
[2017-10-20] MEDS: risperiDONE 1 MG TAB PO SCH (21:00)
[2017-10-21] MEDS: ACETAMINOPHEN/HYDROcodone 325 MG/10 MG TAB PO PRN ×4 (00:12→18:22)
[2017-10-21] MEDS: EUCERIN CREAM 120 GM JAR TOPICAL PRN ×2 (00:21→21:27)
[2017-10-21] MEDS: ZINC OXIDE 20% OINT 30 GM TUBE TOPICAL PRN (00:22)
[2017-10-21 05:12] VITALS: BP 123/57; PULSE 77; RESP 17; TEMP 97.4; O2SAT 96
[2017-10-21] MEDS: risperiDONE 1 MG TAB PO SCH ×2 (08:55→20:37)
[2017-10-21] MEDS: amLODIPine BESYLATE 5 MG TAB PO SCH (09:00)
[2017-10-21] MEDS: HALOPERIDOL 5 MG TAB PO SCH (09:00)
[2017-10-21] MEDS: HEPARIN SODIUM - SQ 10,000 UNITS/ML VIAL SQ SCH ×2 (09:00→20:38)
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
[2017-10-21] MEDS ORDERED: CYANOCOBALAMIN 1000 MCG/ML VIAL IM SCH (12:00)
--- NOTE | 2017-10-21 15:52 | HHI.PYPN ---
Subjective Remarks Patient seen for follow, chart reviewed. Discussion nursing staff reported the patient did allow for skin assessment by nursing as well as had dressing changes for superficial wound on her lower extremity. Patient is compliant with risperidone. Patient was found sitting hallway in wheelchair continue to be noted to be in multiple clothing and blankets. Patient states that she has been compliant with her risperidone and did allow for nursing staff to evaluate her skin. Patient did agree to attempt to participate more in physical therapy as well as getting self out of her wheelchair more. Patient noted to have less perseveration on somatic symptoms postal present but noted to be more cooperative and engaging allowing staff to assist and assess her. Review of Systems Except as stated in HPI: all other systems reviewed are Neg Mental Status Examination Appearance: Disheveled, Other (covered in blankets) Consciousness: Alert Orientation: x4 Motor Activity: Abnormal gait Speech: Unremarkable Language: Adequate Fund of Knowledge: Inadequate Attention and Concentration: Adequate Memory: Unremarkable Mood: Anxious Affect: Anxious Thought Process & Associations: Loose associations, Tangential Thought Content: Bizarre thinking, Preoccupations, Delusional Hallucination Type: None Delusion Type: Bizarre, Paranoid, Somatic Suicidal Ideation: No Suicidal Plan: No Suicidal Intention: No Homicidal Ideation: No Homicidal Plan: No Homicidal Intention: No Insight: Poor Judgment: Poor Results Vitals/IOs Vital Signs Date Time Temp Pulse Resp B/P (MAP) Pulse Ox O2 Delivery O2 Flow Rate FiO2 10/21/17 05:12 97.4 77 17 123/57 (79) 96 Assessment & Plan Problem List: (1) Unspecified psychosis ICD Codes: F29 - Unspecified psychosis not due to a substance or known physiological condition Assessment & Plan Patient at this time continued with somatic delusions although seemed to start to slightly lessen in intensity. Patient is allowing participation in care and evaluations by staff. Patient encouraged to continue to work with physical therapy and to work on more independent ambulation. Continue current treatment. Continue monitoring with behavior. Discharge planning in progress. Justification for Cont. Inpt. At risk for further decompensation if at lower level of care Discharge Planning Patient to return back to assisted living facility Rome Fonseca MD Oct 21, 2017 15:52
[2017-10-21 18:33] VITALS: BP 122/56; PULSE 76; RESP 18; TEMP 97.3; O2SAT 95
[2017-10-22] MEDS: ACETAMINOPHEN/HYDROcodone 325 MG/10 MG TAB PO PRN ×4 (00:54→18:47)
[2017-10-22 06:26] VITALS: BP 127/61; PULSE 68; RESP 17; TEMP 97.4; O2SAT 97
[2017-10-22] MEDS: risperiDONE 1 MG TAB PO SCH ×2 (08:51→21:00)
[2017-10-22] MEDS: amLODIPine BESYLATE 5 MG TAB PO SCH (08:53)
[2017-10-22] MEDS: HEPARIN SODIUM - SQ 10,000 UNITS/ML VIAL SQ SCH ×2 (08:53→21:00)
--- NOTE | 2017-10-22 17:01 | HHI.PYPN ---
Subjective Remarks Patient seen for follow-up, chart reviewed. Discussion nursing staff reported patient has been slightly more cooperative staff although continues to have somatic delusions but less intense. Patient is found in wheelchair continues to have multiple garments placed noted to be calm and cooperative. Patient was tolerating medications well, patient states that she would like to be referred to a different assisted living facility but is aware that she will likely need to return back to her previous residence in the interim. Patient's paranoia with the residence has lessened and not so intense and willing to return and cooperate with staff there. Review of Systems Except as stated in HPI: all other systems reviewed are Neg Mental Status Examination Appearance: Disheveled, Other (covered in blankets) Consciousness: Alert Orientation: x4 Motor Activity: Abnormal gait Speech: Unremarkable Language: Adequate Fund of Knowledge: Inadequate Attention and Concentration: Adequate Memory: Unremarkable Mood: Anxious Affect: Anxious Thought Process & Associations: Linear Thought Content: Bizarre thinking, Preoccupations, Delusional Hallucination Type: None Delusion Type: Paranoid (less ), Somatic (less intense) Suicidal Ideation: No Suicidal Plan: No Suicidal Intention: No Homicidal Ideation: No Homicidal Plan: No Homicidal Intention: No Insight: Poor Judgment: Poor Results Vitals/IOs Vital Signs Date Time Temp Pulse Resp B/P (MAP) Pulse Ox O2 Delivery O2 Flow Rate FiO2 10/22/17 06:26 97.4 68 17 127/61 (83) 97 Intake and Output 10/22/17 10/22/17 10/23/17 08:00 16:00 00:00 Intake Total 240 ml Balance 240 ml Assessment & Plan Problem List: (1) Unspecified psychosis ICD Codes: F29 - Unspecified psychosis not due to a substance or known physiological condition Assessment & Plan Patient this time continues to have somatic delusions although less intense, noted to be more cooperative and engaging with staff. Continue current treatment. We will continue one-to-one behavior. Patient likely for discharge back to her assisted living facility tomorrow. Discharge planning in progress. Justification for Cont. Inpt. At risk for further decompensation if at lower level of care. Discharge Planning Return back to her assisted living facility. Rome Fonseca MD Oct 22, 2017 17:01
[2017-10-22 18:18] VITALS: BP 111/60; PULSE 18; RESP 18; TEMP 98.9; O2SAT 99
[2017-10-22] MEDS: EUCERIN CREAM 120 GM JAR TOPICAL PRN (21:04)
[2017-10-22] MEDS: ZINC OXIDE 20% OINT 30 GM TUBE TOPICAL PRN (21:05)
[2017-10-23] MEDS: ACETAMINOPHEN/HYDROcodone 325 MG/10 MG TAB PO PRN ×3 (00:55→12:27)
[2017-10-23 05:32] VITALS: BP 135/61; PULSE 72; RESP 16; TEMP 98; O2SAT 98
[2017-10-23] MEDS: risperiDONE 1 MG TAB PO SCH (08:40)
[2017-10-23] MEDS: amLODIPine BESYLATE 5 MG TAB PO SCH (08:40)
[2017-10-23] MEDS: HEPARIN SODIUM - SQ 10,000 UNITS/ML VIAL SQ SCH (08:40)
[2017-10-23] MEDS ORDERED: HYDR-3366 PO (09:06)
[2017-10-23] MEDS ORDERED: RISP1 PO (09:06)
[2017-10-23] MEDS ORDERED: AMLO5 PO (09:06)
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
[2017-12-12] MEDS ORDERED: CYANOCOBALAMIN 1000 MCG/ML VIAL IM SCH (12:00)
== END 2017-10-23 14:55 | DRG 885 ==
LOC: NEPE 17:42 → NEDA 23:47 → H4EA 10-01 02:02 → H250 10-06 16:00 → H260 10-12 15:26
PROVIDERS: ADMIT Student in an Organized Health Care Education/Training Program; ATTEND Student in an Organized Health Care Education/Training Program
DX: F23 Brief psychotic disorder (principal); F22 Delusional disorders; G62.9 Polyneuropathy, unspecified; Z99.81 Dependence on supplemental oxygen; B35.1 Tinea unguium; J45.909 Unspecified asthma, uncomplicated; E53.8 Deficiency of other specified B group vitamins; L60.2 Onychogryphosis; S81.802A Unspecified open wound, left lower leg, initial encounter; E87.6 Hypokalemia; R03.0 Elevated blood-pressure reading, without diagnosis of hypertension; G89.29 Other chronic pain; R53.1 Weakness; R41.82 Altered mental status, unspecified; R26.9 Unspecified abnormalities of gait and mobility; R20.2 Paresthesia of skin; R20.0 Anesthesia of skin; J98.4 Other disorders of lung; Z72.0 Tobacco use
CPT/HCPCS: 70450; 80048; 80053; 80061; 82607; 82948; 83036; 84132; 84439; 84443; 84480; 85025; 85027; 93005; 99285; J1630; J1644; J3420

== ENCOUNTER 2017-10-30 17:37 | Emergency (ER) | payer MEDICARE, OTHER ==
[~2017-10-30] VITALS: Ht 165.1 cm; Wt 52.0 kg
[~2017-10-30 17:37] MED LIST: AMLO5 PO; BENZ1LOZ5 PO; HYDR-3366 PO; RISP1 PO
[2017-10-30 17:48] VITALS: BP 130/72; PULSE 94; RESP 18; TEMP 98.3; O2SAT 100
--- NOTE | 2017-10-30 18:10 | PD ---
HPI Chief Complaint: Psychiatric Symptoms Time Seen by Provider: 18:08 Travel History International Travel<30 days: No Contact w/Intl Traveler<30days: No Traveled to known affect area: No [facility] Past Medical History Asthma: Yes Autoimmune Disease: No Anxiety: No Depression: No Cancer: No Cardiovascular Problems: No Diabetes: No Endocrine: No Genitourinary: Yes (INCONTINENT) Headaches: Yes (pain all over head) Hypertension: Yes Immune Disorder: No Musculoskeletal: No Neurologic: No Psychiatric: No Reproductive: No Respiratory: Yes (REACTIVE AIRWAYS DISEASE) Seizures: No Tetanus Vaccination: < 5 Years ?: Not Past Surgical History Surgical History: No Previous Surgery Other Surgery: No Social History Alcohol Use: No Tobacco Use: No Substance Use: No Allergies-Medications (Allergen,Severity, Reaction): Coded Allergies: No Known Allergies (Verified Allergy, Unknown, 10/30/17) Reported Meds & Prescriptions Reported Meds & Active Scripts Active Risperdal (Risperidone) 1 Mg Tab 1 Mg PO Q12HR 30 Days Norvasc (Amlodipine Besylate) 5 Mg Tab 5 Mg PO DAILY 30 Days [place] (Hydrocodone-Acetaminophen) 10-325 Mg Tab 1 Tab PO Q6H 7 Days Reported Cepacol Sore Throat Lozenge (Benzocaine/Menthol) 15-3.6 Mg Lozg 1 Lozenge PO Q4HR PRN Data Data Last Documented VS Vital Signs Date Time Temp Pulse Resp B/P (MAP) Pulse Ox O2 Delivery O2 Flow Rate FiO2 10/30/17 17:48 98.3 94 18 130/72 (91) 100 Orders Orders Complete Blood Count With Diff (10/30/17 18:08) Comprehensive Metabolic Panel (10/30/17 18:08) Thyroid Stimulating Hormone (10/30/17 18:08) Urinalysis - C+S If Indicated (10/30/17 18:08) Psych Screen (10/30/17 18:08) Drug Screen, Random Urine (10/30/17 18:08) Alcohol (Ethanol) (10/30/17 18:08) Meka Patterson Oct 30, 2017 18:10
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
[2017-10-30 19:02] LABS: AUTOMATED NEUTROPHIL # 4.1 TH/MM3 (1.8-7.7); BASOPHIL % 0.3 % (0.0-2.0); EOSINOPHIL # 0.1 TH/MM3 (0-0.4); EOSINOPHIL % 1.3 % (0.0-4.0); HEMATOCRIT 37.7 % (35.0-46.0); HEMOGLOBIN 13.1 GM/DL (11.6-15.3); LYMPH % 30.9 % (9.0-44.0); LYMPHOCYTE # 2.2 TH/MM3 (1.0-4.8); MEAN CELL VOLUME 88.1 FL (80.0-100.0); MEAN CORPUSCULAR HEMOGLOBIN 30.6 PG (27.0-34.0); MEAN CORPUSCULAR HGB CONC 34.7 % (32.0-36.0); MEAN PLATELET VOLUME 6.8 FL (7.0-11.0); MONO % 9.5 % (0.0-8.0); MONOCYTE # 0.7 TH/MM3 (0-0.9); PLATELET COUNT 298 TH/MM3 (150-450); RED BLOOD COUNT 4.28 MIL/MM3 (4.00-5.30); RED CELL DISTRIBUTION WIDTH 14.3 % (11.6-17.2); WHITE BLOOD COUNT 7.1 TH/MM3 (4.0-11.0)
[2017-10-30 19:04] LABS: ALBUMIN 3.5 GM/DL (3.4-5.0); ALT (GPT) 18 U/L (10-53); AST (GOT) 37 U/L (15-37); BLOOD UREA NITROGEN 13 MG/DL (7-18); CALCIUM 9.1 MG/DL (8.5-10.1); CHLORIDE 107 MEQ/L (98-107); GLOMERULAR FILTRATION RATE 122 ML/MIN (>89); GLUCOSE,RANDOM 93 MG/DL (74-106); SODIUM (NA) 141 MEQ/L (136-145)
[2017-10-30 19:14] LABS: ALKALINE PHOSPHATASE 83 U/L (45-117); TOTAL BILIRUBIN ADULT 0.3 MG/DL (0.2-1.0); TOTAL PROTEIN 7.2 GM/DL (6.4-8.2)
[2017-10-30] MEDS ORDERED: ACETAMINOPHEN/HYDROcodone 325 MG/10 MG TAB PO ONE (23:45)
[2017-10-31 01:22] LABS: BACTERIA, URINE MANY /hpf; BILIRUBIN, URINE NEG (NEG); BLOOD, URINE NEG (NEG); GLUCOSE,URINE NEG (NEG); KETONE, URINE NEG (NEG); MUCUS URINE MANY /lpf (OCC); NITRITE,URINE POS (NEG); RENAL EPITHELIAL CELLS 5 /hpf; SQUAMOUS EPITHELIAL CELL URINE 20 /hpf (0-5); TRANSITIONAL EPI CELLS, URINE 1 /hpf; URINE COLOR YELLOW (YELLW/STRAW); URINE LEUKOCYTE ESTERASE LARGE (NEG)
[2017-10-31 01:31] VITALS: BP 116/58; PULSE 80; RESP 18; O2SAT 95
[2017-10-31] MEDS ORDERED: ACETAMINOPHEN/HYDROcodone 325 MG/10 MG TAB PO ONE (07:15)
--- NOTE | 2017-10-31 07:35 | PD ---
Physical Exam Date Seen by Provider: Oct 31, 2017 Time Seen by Provider: 07:33 Narrative 72-year-old female previously medically cleared for psychiatric evaluation is noted to have obvious urinary tract infection with review of her urine screen, and urine cultures pending. Patient will be treated with Keflex 500 mg 3 times daily 7 days. Data Data Last Documented VS Vital Signs Date Time Temp Pulse Resp B/P (MAP) Pulse Ox O2 Delivery O2 Flow Rate FiO2 10/31/17 01:31 80 18 116/58 (77) 95 Room Air 10/30/17 17:48 98.3 Orders Orders Complete Blood Count With Diff (10/30/17 18:08) Comprehensive Metabolic Panel (10/30/17 18:08) Thyroid Stimulating Hormone (10/30/17 18:08) Urinalysis - C+S If Indicated (10/30/17 18:08) Psych Screen (10/30/17 18:08) Drug Screen, Random Urine (10/30/17 18:08) Alcohol (Ethanol) (10/30/17 18:08) Diet Heart Healthy (10/31/17 Breakfast) Acetamin-Hydrocod 325-10 Mg ([place] 10-32 (10/30/17 23:45) Urine Culture (10/30/17 23:09) Acetamin-Hydrocod 325-10 Mg ([place] 10-32 (10/31/17 07:15) Labs Laboratory Tests Test 10/30/17 18:15 10/30/17 23:09 White Blood Count 7.1 TH/MM3 Red Blood Count 4.28 MIL/MM3 Hemoglobin 13.1 GM/DL Hematocrit 37.7 % Mean Corpuscular Volume 88.1 FL Mean Corpuscular Hemoglobin 30.6 PG Mean Corpuscular Hemoglobin Concent 34.7 % Red Cell Distribution Width 14.3 % Platelet Count 298 TH/MM3 Mean Platelet Volume 6.8 FL Neutrophils (%) (Auto) 58.0 % Lymphocytes (%) (Auto) 30.9 % Monocytes (%) (Auto) 9.5 % Eosinophils (%) (Auto) 1.3 % Basophils (%) (Auto) 0.3 % Neutrophils # (Auto) 4.1 TH/MM3 Lymphocytes # (Auto) 2.2 TH/MM3 Monocytes # (Auto) 0.7 TH/MM3 Eosinophils # (Auto) 0.1 TH/MM3 Basophils # (Auto) 0.0 TH/MM3 CBC Comment DIFF FINAL Differential Comment Blood Urea Nitrogen 13 MG/DL Creatinine 0.50 MG/DL Random Glucose 93 MG/DL Total Protein 7.2 GM/DL Albumin 3.5 GM/DL Calcium Level 9.1 MG/DL Alkaline Phosphatase 83 U/L Aspartate Amino Transf (AST/SGOT) 37 U/L Alanine Aminotransferase (ALT/SGPT) 18 U/L Total Bilirubin 0.3 MG/DL Sodium Level 141 MEQ/L Potassium Level 4.1 MEQ/L Chloride Level 107 MEQ/L Carbon Dioxide Level 26.0 MEQ/L Anion Gap 8 MEQ/L Estimat Glomerular Filtration Rate 122 ML/MIN Thyroid Stimulating Hormone 3rd Gen 0.893 uIU/ML Ethyl Alcohol Level LESS THAN 3 MG/DL Urine Color YELLOW Urine Turbidity HAZY Urine pH 6.0 Urine Specific [place] 1.024 Urine Protein TRACE mg/dL Urine Glucose (UA) NEG mg/dL Urine Ketones NEG mg/dL Urine Occult Blood NEG Urine Nitrite POS Urine Bilirubin NEG Urine Urobilinogen LESS THAN 2.0 MG/DL Urine Leukocyte Esterase LARGE Urine RBC 4 /hpf Urine WBC 124 /hpf Urine Squamous Epithelial Cells 20 /hpf Urine Transitional Epithelial Cells 1 /hpf Urine Renal Epithelial Cells 5 /hpf Urine Bacteria MANY /hpf Urine Mucus MANY /lpf Microscopic Urinalysis Comment CULTURE INDICATED Urine Opiates Screen POS Urine Barbiturates Screen NEG Urine Amphetamines Screen NEG Urine Benzodiazepines Screen NEG Urine Cocaine Screen NEG Urine Cannabinoids Screen NEG MDM Medical Record Reviewed: Yes Supervised Visit with ETHAN: Yes Narrative Course 72-year-old female previously medically cleared for psychiatric evaluation is noted to have obvious urinary tract infection with review of her urine screen, and urine cultures pending. Patient will be treated with Keflex 500 mg 3 times daily 7 days. Diagnosis Primary Impression: Delusion Additional Impression: Urinary tract infection Qualified Codes: N30.00 - Acute cystitis without hematuria Condition: Stable Chris Romano Oct 31, 2017 07:35
[2017-10-31] MEDS ORDERED: CEPHALEXIN MONOHYDRATE 250 MG CAP PO SCH ×2 (07:45→09:00)
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
--- NOTE | 2017-10-31 09:39 | PD ---
Physical Exam Date Seen by Provider: Oct 31, 2017 Time Seen by Provider: 09:38 Narrative 72-year-old female coming in from assisted living facility under the [place], was medically clear for psychiatric evaluation. Patient was noted to have a urinary tract infection. Patient was seen by psychiatric services and deemed psychiatrically stable for discharge back to her assisted living facility. Patient will be continued on Keflex 500 mg 3 times daily 7 days Data Data Last Documented VS Vital Signs Date Time Temp Pulse Resp B/P (MAP) Pulse Ox O2 Delivery O2 Flow Rate FiO2 10/31/17 01:31 80 18 116/58 (77) 95 Room Air 10/30/17 17:48 98.3 Orders Orders Complete Blood Count With Diff (10/30/17 18:08) Comprehensive Metabolic Panel (10/30/17 18:08) Thyroid Stimulating Hormone (10/30/17 18:08) Urinalysis - C+S If Indicated (10/30/17 18:08) Psych Screen (10/30/17 18:08) Drug Screen, Random Urine (10/30/17 18:08) Alcohol (Ethanol) (10/30/17 18:08) Diet Heart Healthy (10/31/17 Breakfast) Acetamin-Hydrocod 325-10 Mg ([place] 10-32 (10/30/17 23:45) Urine Culture (10/30/17 23:09) Acetamin-Hydrocod 325-10 Mg ([place] 10-32 (10/31/17 07:15) Cephalexin (Keflex) (10/31/17 07:45) Cephalexin (Keflex) (10/31/17 09:00) Labs Laboratory Tests Test 10/30/17 18:15 10/30/17 23:09 White Blood Count 7.1 TH/MM3 Red Blood Count 4.28 MIL/MM3 Hemoglobin 13.1 GM/DL Hematocrit 37.7 % Mean Corpuscular Volume 88.1 FL Mean Corpuscular Hemoglobin 30.6 PG Mean Corpuscular Hemoglobin Concent 34.7 % Red Cell Distribution Width 14.3 % Platelet Count 298 TH/MM3 Mean Platelet Volume 6.8 FL Neutrophils (%) (Auto) 58.0 % Lymphocytes (%) (Auto) 30.9 % Monocytes (%) (Auto) 9.5 % Eosinophils (%) (Auto) 1.3 % Basophils (%) (Auto) 0.3 % Neutrophils # (Auto) 4.1 TH/MM3 Lymphocytes # (Auto) 2.2 TH/MM3 Monocytes # (Auto) 0.7 TH/MM3 Eosinophils # (Auto) 0.1 TH/MM3 Basophils # (Auto) 0.0 TH/MM3 CBC Comment DIFF FINAL Differential Comment Blood Urea Nitrogen 13 MG/DL Creatinine 0.50 MG/DL Random Glucose 93 MG/DL Total Protein 7.2 GM/DL Albumin 3.5 GM/DL Calcium Level 9.1 MG/DL Alkaline Phosphatase 83 U/L Aspartate Amino Transf (AST/SGOT) 37 U/L Alanine Aminotransferase (ALT/SGPT) 18 U/L Total Bilirubin 0.3 MG/DL Sodium Level 141 MEQ/L Potassium Level 4.1 MEQ/L Chloride Level 107 MEQ/L Carbon Dioxide Level 26.0 MEQ/L Anion Gap 8 MEQ/L Estimat Glomerular Filtration Rate 122 ML/MIN Thyroid Stimulating Hormone 3rd Gen 0.893 uIU/ML Ethyl Alcohol Level LESS THAN 3 MG/DL Urine Color YELLOW Urine Turbidity HAZY Urine pH 6.0 Urine Specific [place] 1.024 Urine Protein TRACE mg/dL Urine Glucose (UA) NEG mg/dL Urine Ketones NEG mg/dL Urine Occult Blood NEG Urine Nitrite POS Urine Bilirubin NEG Urine Urobilinogen LESS THAN 2.0 MG/DL Urine Leukocyte Esterase LARGE Urine RBC 4 /hpf Urine WBC 124 /hpf Urine Squamous Epithelial Cells 20 /hpf Urine Transitional Epithelial Cells 1 /hpf Urine Renal Epithelial Cells 5 /hpf Urine Bacteria MANY /hpf Urine Mucus MANY /lpf Microscopic Urinalysis Comment CULTURE INDICATED Urine Opiates Screen POS Urine Barbiturates Screen NEG Urine Amphetamines Screen NEG Urine Benzodiazepines Screen NEG Urine Cocaine Screen NEG Urine Cannabinoids Screen NEG MDM Medical Record Reviewed: Yes Supervised Visit with ETHAN: Yes Narrative Course 72-year-old female coming in from assisted living facility under the [employer] [facility], was medically clear for psychiatric evaluation. Patient was noted to have a urinary tract infection. Patient was seen by psychiatric services and deemed psychiatrically stable for discharge back to her assisted living facility. Patient will be continued on Keflex 500 mg 3 times daily 7 days Diagnosis Primary Impression: Delusion Additional Impression: Urinary tract infection Qualified Codes: N30.00 - Acute cystitis without hematuria Patient Instructions: General Instructions Additional Instruction: 72-year-old female coming in from assisted living facility under the [place], was medically clear for psychiatric evaluation. Patient was noted to have a urinary tract infection. Patient was seen by psychiatric services and deemed psychiatrically stable for discharge back to her assisted living facility. Patient will be continued on Keflex 500 mg 3 times daily 7 days Med/Other Pt SpecificInfo: Prescription(s) given Disposition: 01 DISCHARGE HOME Condition: Stable Chris Romano Oct 31, 2017 09:39
[2017-10-31 09:40] VITALS: RESP 18
[2017-10-31] MEDS ORDERED: CEPH-460 PO (09:40)
== END 2017-10-31 10:49 | disposition home or self-care (01) ==
LOC: NEPC 17:37 → NEPD 10-31 10:49
DX: F22 Delusional disorders (principal); N39.0 Urinary tract infection, site not specified; B96.20 Unspecified Escherichia coli [E. coli] as the cause of diseases classified elsewhere; J45.909 Unspecified asthma, uncomplicated; I10 Essential (primary) hypertension; I25.10 Atherosclerotic heart disease of native coronary artery without angina pectoris; G62.9 Polyneuropathy, unspecified; G89.29 Other chronic pain
CPT/HCPCS: 80053; 80307; 81001; 84443; 85025; 87077; 87086; 87186; 99283